=== PATIENT | male | born 1945 | race Caucasian/White ===

== ENCOUNTER 2016-03-22 | Outpatient (CLI) | payer MEDICARE, MEDICAID | END 2016-03-22 17:27 | disposition critical access hospital (66) | DX: R55 Syncope and collapse (principal) | CPT/HCPCS: A0425; A0427 ==

== ENCOUNTER 2016-03-22 17:44 | Emergency (ER) | payer MEDICARE ==
[2016-03-22] MEDS ORDERED: SODIUM CHLORIDE 0.9% 1,000 ML IV ONE (17:50)
== END 2016-03-22 20:40 | disposition left against medical advice (07) ==
DX: R55 Syncope and collapse (principal); I10 Essential (primary) hypertension
CPT/HCPCS: 36415; 71010; 80053; 80307; 83690; 84484; 85025; 93005; 93010; 99284; G0480

== ENCOUNTER 2016-07-14 07:15 | Outpatient (CLI) | payer MEDICARE, MEDICAID | END 2016-07-14 07:16 | disposition EMS.NT | LOC: EMS 07:15 | PROVIDERS: ATTEND Surgery | DX: Z03.89 Encounter for observation for other suspected diseases and conditions ruled out (principal); W01.198A Fall on same level from slipping, tripping and stumbling with subsequent striking against other object, initial encounter; Y92.099 Unspecified place in other non-institutional residence as the place of occurrence of the external cause ==

== ENCOUNTER 2017-06-09 07:15 | Outpatient (CLI) | payer MEDICARE, MEDICAID | END 2017-06-09 07:16 | disposition critical access hospital (66) | LOC: EMS 07:15 | PROVIDERS: ATTEND Surgery | DX: R10.9 Unspecified abdominal pain (principal); R11.10 Vomiting, unspecified; R05 Cough | CPT/HCPCS: A0425; A0427 ==

== ENCOUNTER 2017-06-09 07:35 | Emergency (ER) | payer MEDICARE, MEDICAID ==
--- NOTE | 2017-06-09 08:12 | ED Physician Documentation ---
PD HPI ALTERED MENTAL STATUS - Stated complaint Stated Complaint: DEC LOC - Chief complaint Chief Complaint: Neuro - History obtained from History obtained from: Patient, EMS - History of Present Illness Timing - onset: How many days ago (2) Timing - duration: Days (2) Timing - details: Gradual onset, Still present, Waxing and waning Associated symptoms: NVD, Other (abdominal cramping last night) Contributing factors: Anticoagulated, Other (has developmental delay) Basline status: Ambulatory, Independent Similar symptoms before: No diagnosis Recently seen: Not recently seen - Additional information Additional information: 72-year-old male with a history of developmental delay has developed some abdominal cramping last night and this morning the nurses called to have him transported the hospital for evaluation. The patient states that this morning he is not having any difficulty with his abdominal cramping and his symptoms are resolved. He states that he did have some vomiting 2 nights ago and that is not normal for him but he is not nauseated now. He states that if he were left at home he would do his usual morning routine this morning. Review of Systems Constitutional: denies: Fever Eyes: denies: Decreased vision Ears: denies: Ear pain Nose: denies: Congestion Throat: denies: Sore throat Cardiac: denies: Chest pain / pressure, Palpitations Respiratory: denies: Dyspnea, Cough GI: reports: Abdominal Pain, Nausea, Vomiting. denies: Constipation, Diarrhea : denies: Dysuria, Frequency Skin: denies: Rash Musculoskeletal: denies: Neck pain, Back pain, Extremity pain Neurologic: denies: Generalized weakness, Focal weakness, Headache, Head injury , LOC PD PAST MEDICAL HISTORY - Past Medical History Cardiovascular: Hypertension Neuro: Other HEENT: Other Psych: Anxiety - Present Medications Home Medications: Ambulatory Orders Medication Instructions Recorded Confirmed Acetaminophen [Tylenol] 325 mg PO Q4-6H PRN 04/25/13 04/25/13 Cetirizine HCl [Zyrtec] 10 mg PO 04/25/13 04/25/13 Divalproex ER [Depakote ER] 875 mg PO DAILY 04/25/13 04/25/13 Divalproex Sodium [Depakote] 750 mg PO DAILY 04/25/13 04/25/13 Loperamide [Imodium] 2 mg PO QID 04/25/13 04/25/13 Metoprolol Succinate [Toprol Xl] 25 mg PO ONCE 04/25/13 04/25/13 Temazepam 30 mg PO PRN 04/25/13 04/25/13 - Allergies Allergies/Adverse Reactions: Allergies Allergy/AdvReac Type Severity Reaction Status Date / Time No Known Drug Allergies Allergy Verified 06/09/17 07:56 - Social History Does the pt smoke?: No Smoking Status: Never smoker Does the pt drink ETOH?: No - Immunizations Immunizations are current?: Yes - POLST Patient has POLST: Yes POLST Status: Full Code PD ED PE NORMAL - Vitals Vital signs reviewed: Yes (tachy and hypertensive mild) - General General: No acute distress, Well developed/nourished - HEENT HEENT: Atraumatic, PERRL, EOMI - Neck Neck: Supple, no meningeal sign, No bony TTP - Cardiac Cardiac: No murmur, Other (tachy to 110 sitting up. ) - Respiratory Respiratory: No respiratory distress, Clear bilaterally - Abdomen Abdomen: Soft, Non tender - Male Male : Deferred - Back Back: No CVA TTP, No spinal TTP - Derm Derm: Normal color, Warm and dry, No rash - Extremities Extremities: No deformity, No edema - Neuro Neuro: No motor deficit, No sensory deficit, Normal speech Eye Opening: Spontaneous Motor: Obeys Commands Verbal: Confused GCS Score: 14 - Psych Psych: Normal mood, Normal affect Results - Vitals Vitals: Vital Signs - 24 hr 06/09/17 06/09/17 06/09/17 07:46 09:33 10:40 Temperature 36.7 C Heart Rate 105 H 97 99 Respiratory 17 15 18 Rate Blood Pressure 134/84 H 141/102 H 111/85 H O2 Saturation 92 99 99 06/09/17 06/09/17 11:46 13:26 Temperature 36.3 C L Heart Rate 101 H 78 Respiratory 20 18 Rate Blood Pressure 142/103 H 128/61 O2 Saturation 95 95 Oxygen O2 Source Room air - EKG (time done) 0754 Rate: Rate (enter#) (101) Rhythm: Sinus tachycardia [place]: LAD Intervals: Prolonged QT (522) QRS: Poor R wave progression, Low voltage - Labs Labs: Laboratory Tests 06/09/17 06/09/17 06/09/17 07:50 07:50 07:50 WBC 7.7 RBC 4.38 L Hgb 13.0 L Hct 38.6 L MCV 88.0 MCH 29.6 MCHC 33.6 RDW 15.7 H Plt Count 133 MPV 7.5 Neut # 3.2 Lymph # 3.5 Sully # 0.9 Eos # 0.0 Baso # 0.1 Absolute Nucleated RBC 0.00 Nucleated RBC % 0.0 Sodium 135 Potassium 3.4 L Chloride 97 L Carbon Dioxide 27 Anion Gap 11.0 BUN 27 H Creatinine 1.1 Estimated GFR (MDRD) 66 L Glucose 108 H Calcium 8.8 Total Bilirubin 0.6 AST 51 H ALT 24 Alkaline Phosphatase 44 Troponin I < 0.04 Total Protein 8.1 Albumin 3.8 Globulin 4.3 H Albumin/Globulin Ratio 0.9 L Lipase 20 L Urine Color Urine Clarity Urine pH Ur Specific [place] Urine Protein Urine Glucose (UA) Urine Ketones Urine Occult Blood Urine Nitrite Urine Bilirubin Urine Urobilinogen Ur Leukocyte Esterase Ur Microscopic Review Urine Culture Comments 06/09/17 11:30 WBC RBC Hgb Hct MCV MCH MCHC RDW Plt Count MPV Neut # Lymph # [place]ully # Eos # Baso # Absolute Nucleated RBC Nucleated RBC % Sodium Potassium Chloride Carbon Dioxide Anion Gap BUN Creatinine Estimated GFR (MDRD) Glucose Calcium Total Bilirubin AST ALT Alkaline Phosphatase Troponin I Total Protein Albumin Globulin Albumin/Globulin Ratio Lipase Urine Color YELLOW Urine Clarity CLEAR Urine pH 5.5 Ur Specific [place] 1.025 Urine Protein NEGATIVE Urine Glucose (UA) NEGATIVE Urine Ketones NEGATIVE Urine Occult Blood NEGATIVE Urine Nitrite NEGATIVE Urine Bilirubin NEGATIVE Urine Urobilinogen 0.2 (NORMAL) Ur Leukocyte Esterase NEGATIVE Ur Microscopic Review NOT INDICATED Urine Culture Comments NOT INDICATED Procedures - IVC sono (time) 0820 Bedside IVC sono: IVC measures (cm) (1.28), Dehydration (mild est 1liter deficit ) PD MEDICAL DECISION MAKING - ED course Complexity details: reviewed old records, reviewed results, re-evaluated patient , considered differential, d/w patient ED course: 72 y/o developmentally delayed male with some abdominal cramping yesterday is symptom free today. He is a poor historian and wants to go home. He is examined and checked over closely without specific findings with the exception of the low CVP presumed from dehydration. He is administered IV saline and discharged back to home. Departure - Departure Disposition: 01 Home, Self Care Clinical Impression: Dehydration Condition: Stable Instructions: ED Dehydration Follow-Up: Good,Dottie B, PA-C [Provider Admit Priv/Credential] - Discharge Date/Time: 06/09/17 13:26
[2017-06-09] MEDS ORDERED: SODIUM CHLORIDE 0.9% 1,000 ML IV ONE (08:22)
[2017-06-09 08:28] LABS: BASOPHILS # (AUTO) 0.1 10^3/uL (0.0-0.1); BASOPHILS % (AUTO) 0.7 %; EOSINOPHILS % (AUTO) 0.6 %; LYMPHOCYTES # (AUTO) 3.5 10^3/uL (1.5-3.5); LYMPHOCYTES % (AUTO) 45.5 %; MEAN CORPUSCULAR HEMOGLOBIN 29.6 pg (27.0-31.0); MEAN CORPUSCULAR HGB CONC 33.6 g/dL (32.0-36.0); MEAN PLATELET VOLUME 7.5 fL (7.4-11.4); MONOCYTES # (AUTO) 0.9 10^3/uL (0.0-1.0); MONOCYTES % (AUTO) 11.3 %; NEUTROPHILS # (AUTO) 3.2 10^3/uL (1.5-6.6); NEUTROPHILS % (AUTO) 41.9 %; PLT - PLATELET COUNT 133 10^3/uL (130-450); RED BLOOD COUNT 4.38 10^6/uL (4.70-6.10); RED CELL DISTRIBUTION WIDTH 15.7 % (12.0-15.0); WHITE BLOOD COUNT 7.7 x10^3/uL (4.8-10.8)
[2017-06-09 08:42] LABS: ALBUMIN 3.8 g/dL (3.2-5.5); ALBUMIN/GLOBULIN RATIO 0.9 (1.0-2.2); BILIRUBIN,TOTAL 0.6 mg/dL (0.2-1.0); CALCIUM 8.8 mg/dL (8.5-10.3); CREATININE 1.1 mg/dL (0.6-1.2); TOTAL PROTEIN 8.1 g/dL (6.7-8.2)
[2017-06-09 11:42] LABS: BILIRUBIN,URINE NEGATIVE (NEGATIVE); GLUCOSE, URINE (UA) NEGATIVE (NEGATIVE); KETONES,URINE (UA) NEGATIVE (NEGATIVE); LEUKOCYTE ESTERASE, URINE NEGATIVE (NEGATIVE); NITRITE,URINE NEGATIVE (NEGATIVE); OCCULT BLOOD,URINE NEGATIVE (NEGATIVE); PH,URINE 5.5 PH (5.0-7.5); PROTEIN,URINE NEGATIVE (NEGATIVE); UROBILINOGEN,URINE 0.2 (NORMAL) E.U./dL (NORMAL)
[2017-06-09 11:45] LABS: CLARITY,URINE CLEAR (CLEAR)
[2017-06-09] MEDS ORDERED: POTASSIUM BICARB 25 MEQ TABLET PO STA (12:02)
[2017-06-09 13:27] VITALS: BP 128/61
== END 2017-06-09 13:26 | disposition home or self-care (01) ==
LOC: EDUNIT# → ED 07:35
DX: E86.0 Dehydration (principal)
CPT/HCPCS: 36415; 80053; 81003; 83690; 84484; 85025; 93005; 96360; 99284; 99285; A9270; 81001; 87086

== ENCOUNTER 2018-10-23 08:00 | Outpatient (CLI) | payer MEDICARE, MEDICAID ==
[2018-10-23 16:58] LABS: BASOPHILS # (AUTO) 0.1 10^3/uL (0.0-0.1); BASOPHILS % (AUTO) 0.8 %; EOSINOPHILS # (AUTO) 0.2 10^3/uL (0.0-0.7); EOSINOPHILS % (AUTO) 2.3 %; HGB - HEMOGLOBIN 14.4 g/dL (14.0-18.0); LYMPHOCYTES # (AUTO) 3.5 10^3/uL (1.5-3.5); LYMPHOCYTES % (AUTO) 45.8 %; MEAN CORPUSCULAR HEMOGLOBIN 30.6 pg (27.0-31.0); MEAN CORPUSCULAR VOLUME 92.8 fL (80.0-94.0); MEAN PLATELET VOLUME 9.7 fL (7.4-11.4); MONOCYTES # (AUTO) 0.7 10^3/uL (0.0-1.0); MONOCYTES % (AUTO) 8.6 %; NEUTROPHILS # (AUTO) 3.2 10^3/uL (1.5-6.6); NEUTROPHILS % (AUTO) 42.1 %; PLT - PLATELET COUNT 181 10^3/uL (130-450); RED BLOOD COUNT 4.71 10^6/uL (4.70-6.10); RED CELL DISTRIBUTION WIDTH 14.2 % (12.0-15.0); WHITE BLOOD COUNT 7.7 x10^3/uL (4.8-10.8)
== END 2018-10-23 23:59 | disposition home or self-care (01) ==
LOC: LAB.R 08:00
PROVIDERS: ATTEND Internal Medicine
DX: I10 Essential (primary) hypertension (principal)
CPT/HCPCS: 84550; 85025

== ENCOUNTER 2020-06-01 12:41 | Outpatient (CLI) | payer MEDICARE, MEDICAID ==
--- NOTE | 2020-06-01 14:23 | XRAY Report ---
PROCEDURE: Knee 3 View BILAT INDICATIONS: BILATERAL KNEE PX TECHNIQUE: 3 views of each knee(s) were acquired. COMPARISON: None. FINDINGS: Bones: No acute fractures or dislocations. Healed fracture deformity of the left proximal fibula. No suspicious bony lesions. Mild periarticular osteophyte formation at the bilateral knee joints. Soft tissues: No joint effusion. No suspicious soft tissue calcifications. IMPRESSION: 1. Osteoarthritis. 2. No acute fracture. No osseous lesion. If symptoms and/or clinical suspicion for pathology continue , further assessment with repeat plain films, or advanced imaging (e.g., CT, MRI, or bone scan) is re commended for further assessment. Reviewed by: Linh Boo MD on 06/01/2020 2:21 PM PDT Approved by: Linh Boo MD on 06/01/2020 2:21 PM PDT Station ID: [id number]
== END 2020-06-01 12:42 | disposition home or self-care (01) ==
LOC: DI.N 12:41
PROVIDERS: ATTEND Student in an Organized Health Care Education/Training Program
DX: M17.0 Bilateral primary osteoarthritis of knee (principal)

== ENCOUNTER 2021-03-17 13:10 | Outpatient (CLI) | payer MEDICARE, MEDICAID | END 2021-03-17 13:11 | disposition short-term general hospital (02) | LOC: EMS 13:10 | DX: R55 Syncope and collapse (principal); I48.91 Unspecified atrial fibrillation | CPT/HCPCS: A0425; A0427 ==

== ENCOUNTER 2021-05-21 07:02 | Outpatient (CLI) | payer MEDICARE, MEDICAID | END 2021-05-21 07:03 | disposition critical access hospital (66) | LOC: EMS 07:02 | DX: R04.0 Epistaxis (principal); R32 Unspecified urinary incontinence; W19.XXXA Unspecified fall, initial encounter; Y92.092 Bedroom in other non-institutional residence as the place of occurrence of the external cause | CPT/HCPCS: A0425; A0429 ==

== ENCOUNTER 2021-05-21 07:20 | Emergency (ER) | payer MEDICARE, MEDICAID ==
[2021-05-21] MEDS ORDERED: SODIUM CHLORIDE 0.9% 1,000 ML IV STA (07:30)
[2021-05-21] MEDS ORDERED: diltiaZEM INJ 5 MG/ML VIAL IVP STA (07:30)
--- NOTE | 2021-05-21 07:34 | ED Physician Documentation ---
PD HPI Fall - Stated complaint Stated Complaint: FALL/FOUND DOWN - History obtained from History obtained from: Patient, EMS, Caregiver (Here is a resident at [facility] and was found down on the floor without apparent injury. He was awake and alert, with no memory of the fall c/w his dementia.) - History of Present Illness Mechanism of injury: Unknown (Report from EMS with the information provided by the caregivers at the facility state the patient had been seen normal and helped up about an hour prior and then was found on the floor shortly prior to arrival. No obvious apparent injuries. EMS was called and they brought him here for evaluation.) Fall distance: Standing position Where injury occurred: Home Timing - onset: How many minutes ago (30), Today Injury(ies) location: Other (No particular complaints of pain or injury. Awake and conversant.). No: Head, Face, Neck, Chest, Abdomen Pain level max: 0 Pain level now: 0 Associated symptoms: No: LOC, Neck pain, Weakness Worsens with: No: Movement, Palpation Contributing factors: Anticoagulated. No: Intoxicated Similar symptoms before: Has not had sx before Recently seen: Not recently seen Review of Systems Unable to obtain: Dementia (poor short term memory. Through Medic, caregivers did not report recent illness, nor any unusual interaction earlier in the morning.) Constitutional: denies: Fever Cardiac: denies: Chest pain / pressure Respiratory: denies: Dyspnea GI: denies: Abdominal Pain Skin: denies: Abrasion (s), Laceration (s) Neurologic: denies: Focal weakness PD PAST MEDICAL HISTORY - Past Medical History Cardiovascular: Hypertension, Atrial fibrillation (He is on diltiazem and a DOAC with presumed history of A. fib.) Neuro: Dementia, Other (Reportedly some developmental delay but the staff at [facility] were not aware what. Prior visits here just speak of a developmental delay.) Endocrine/Autoimmune: None : Benign prostate hypertrophy HEENT: Other Psych: Anxiety Musculoskeletal: Osteoarthritis - Present Medications Home Medications: Ambulatory Orders Medication Instructions Recorded Confirmed Acetaminophen [Tylenol] 325 mg PO Q4-6H PRN 04/25/13 05/21/21 Cetirizine HCl [Zyrtec] 10 mg PO DAILY 04/25/13 05/21/21 Apixaban [Eliquis] 5 mg PO DAILY 05/21/21 05/21/[address] [Depakote Dr] 375 mg PO BID 05/21/21 05/21/21 LORazepam [Ativan] 1 mg PO Q6HR PRN 05/21/21 05/21/21 Loperamide [Imodium] 2 mg PO QID PRN 05/21/21 05/21/21 QUEtiapine [SEROquel] 100 mg PO DAILY 05/21/21 05/21/21 Quetiapine Fumarate [Seroquel] 150 mg PO BID 05/21/21 05/21/21 Tamsulosin [Flomax] 0.4 mg PO DAILY 05/21/21 05/21/21 allopurinoL [Zyloprim] 100 mg PO DAILY 05/21/21 05/21/21 diltiaZEM [Cardizem] 30 mg PO Q6HR 05/21/21 05/21/21 guaiFENesin [Chest Congestion 5 ml PO Q8HR PRN 05/21/21 05/21/21 Relief] traZODone [Desyrel] 50 mg PO HS 05/21/21 05/21/21 - Allergies Allergies/Adverse Reactions: Allergies Allergy/AdvReac Type Severity Reaction Status Date / Time No Known Drug Allergies Allergy Verified 05/21/21 07:30 - Social History Does the pt smoke?: No Smoking Status: Never smoker Does the pt drink ETOH?: No - Immunizations Immunizations are current?: Yes - POLST Patient has POLST: Yes POLST Status: Full Code PD ED PE NORMAL - Vitals Vital signs reviewed: Yes - General General: Alert and oriented X 3, No acute distress (poor memory of events earlier today or recent past c/w dementia. Otherwise alert and answers questions in the moment well. ), Well developed/nourished - HEENT HEENT: Atraumatic, Pharynx benign, Other (somewhat unkempt khoury and hair. Otherwise appears well nourished. ) - Neck Neck: Supple, no meningeal sign, No adenopathy - Cardiac Cardiac: RRR, No murmur - Respiratory Respiratory: No respiratory distress, Clear bilaterally, Other (no chestwall tenderness) - Abdomen Abdomen: Soft, Non tender - Back Back: No CVA TTP, No spinal TTP - Derm Derm: Normal color, Warm and dry - Extremities Extremities: No deformity, No tenderness to palpate, No edema, No calf tenderness / cord - Neuro Neuro: No motor deficit, No sensory deficit. No: Alert and oriented X 3 (person and place but not time nor recent events. ) Eye Opening: Spontaneous Motor: Obeys Commands Verbal: Confused GCS Score: 14 Results - Vitals Vitals: Vital Signs - 24 hr 05/21/21 05/21/21 05/21/21 07:25 07:37 08:07 Temperature 37.1 C Heart Rate 137 H 134 H 108 H Respiratory 22 19 20 Rate Blood Pressure 150/109 H 139/112 H 158/99 H O2 Saturation 93 92 94 05/21/21 05/21/21 05/21/21 08:30 09:00 09:30 Temperature Heart Rate 110 H 114 H 128 H Respiratory 20 18 17 Rate Blood Pressure 184/111 H 177/98 H 188/107 H O2 Saturation 98 99 99 05/21/21 05/21/21 05/21/21 10:00 10:30 11:00 Temperature 36.7 C Heart Rate 117 H 104 H 113 H Respiratory 18 20 18 Rate Blood Pressure 163/74 H 188/83 H 188/106 H O2 Saturation 96 93 98 05/21/21 05/21/21 05/21/21 11:30 12:00 12:30 Temperature 36.6 C Heart Rate 114 H 95 98 Respiratory 17 22 18 Rate Blood Pressure 179/97 H 179/97 H 167/98 H O2 Saturation 97 97 98 Oxygen O2 Source Room air - EKG (time done) 07:42 Rate: Rate (enter#) (130) Rhythm: Sinus tachycardia, Other (Significant baseline artifact but appears some P waves are visible. Consistent with sinus tachycardia with some PACs.) Intervals: Normal [place] Ischemia: Normal ST segments. No: ST elevation c/w ischemia, ST depression - Labs Labs: Laboratory Tests 05/21/21 05/21/21 05/21/21 07:51 07:51 07:51 WBC 9.7 RBC 4.94 Hgb 14.6 Hct 44.5 MCV 90.1 MCH 29.6 MCHC 32.8 RDW 14.9 Plt Count 212 MPV 9.3 Neut # (Auto) 8.2 H Lymph # (Auto) 0.6 L Lee # (Auto) 0.7 Eos # (Auto) 0.0 Baso # (Auto) 0.0 Absolute Nucleated RBC 0.00 Nucleated RBC % 0.0 Sodium 133 L Potassium 4.1 Chloride 93 L Carbon Dioxide 26 Anion Gap 14.0 H BUN 19 Creatinine 1.0 Estimated GFR (MDRD) 73 L Glucose 160 H Calcium 9.6 Magnesium 1.9 Total Bilirubin 0.7 AST 42 ALT 21 Alkaline Phosphatase 60 B-Natriuretic Peptide 62 Total Protein 9.2 H Albumin 3.8 Globulin 5.4 H Albumin/Globulin Ratio 0.7 L Lipase 38 Last Dose Date UNK Last Dose Time UNK Valproic Acid 37.3 - Rads (name of study) chest xray Radiology: Prelim report reviewed (Mild blunting of the left costophrenic angle. Otherwise no acute process.), See rad report Head CT Radiology: Prelim report reviewed (No intracranial hemorrhage or acute process.), See rad report PD MEDICAL DECISION MAKING - ED course Complexity details: reviewed results, re-evaluated patient (The patient is still feeling well here without any specific pains or apparent injuries from the fall. Basic blood testing is normal. Chest x-ray and head CT are without any acute findings. At this point he seems stable for discharge and can be returned back to the correction facility from ), considered differential (No report of recent illness. Found down on the floor after normal interaction an hour prior. Is on blood thinner but no headache. Will check metabolic labs as well to screen for infection and get a head CT due to blood thinner.), d/w patient (History of dementia and poor short-term memory so not as much information from the patient.) Departure - Departure Disposition: 01 Home, Self Care Clinical Impression: Anticoagulant long-term use Fall Qualifiers: Encounter type: initial encounter Qualified Code(s): W19.XXXA - Unspecified fall, initial encounter Condition: Stable Record reviewed to determine appropriate education?: Yes Comments: Continue with your usual medications and treatments. Follow-up as needed with your primary care. No obvious metabolic problems nor injuries noted on exam today. Discharge Date/Time: 05/21/21 13:25
[2021-05-21 08:10] LABS: BASOPHILS % (AUTO) 0.4 %; HCT - HEMATOCRIT 44.5 % (42.0-52.0); HGB - HEMOGLOBIN 14.6 g/dL (14.0-18.0); LYMPHOCYTES # (AUTO) 0.6 10^3/uL (1.5-3.5); LYMPHOCYTES % (AUTO) 6.5 %; MEAN CORPUSCULAR HEMOGLOBIN 29.6 pg (27.0-31.0); MEAN CORPUSCULAR HGB CONC 32.8 g/dL (32.0-36.0); MEAN CORPUSCULAR VOLUME 90.1 fL (80.0-94.0); MEAN PLATELET VOLUME 9.3 fL (7.4-11.4); MONOCYTES # (AUTO) 0.7 10^3/uL (0.0-1.0); MONOCYTES % (AUTO) 7.1 %; NEUTROPHILS # (AUTO) 8.2 10^3/uL (1.5-6.6); NEUTROPHILS % (AUTO) 85.2 %; PLT - PLATELET COUNT 212 10^3/uL (130-450); RED BLOOD COUNT 4.94 10^6/uL (4.70-6.10); RED CELL DISTRIBUTION WIDTH 14.9 % (12.0-15.0); WHITE BLOOD COUNT 9.7 x10^3/uL (4.8-10.8)
--- OUTSIDE RECORDS SUMMARY | 2021-05-21 08:11 | EXTERNAL MEDICAL SUMMARY RPT | Continuity of Care Document ---
:1945 Author Organization [facility] Address [address] [place] [address] Phone Care Team Providers Name Role Phone Crystal Unavailable Unavailable Allergies No information. Encounters No information. Medications No information. Problems date description facility [id number] Unspecified atrial fibrillation [facility] [id number] Pneumonia, unspecified organism [facility] Procedures date description facility [id number] [facility] [id number] [facility] [id number] Diagnosis [facility] Results No information. Vital Signs date measurement value source 20210405 weight_standard 96.73 lb 20210405 weight_metric 43.88 kg 20210405 height_standard 69 in 20210405 height_metric 175.26 cm 20210405 heart_rate 83 /min 20210405 BP_systolic 120 mm[Hg] 20210405 BP_diastolic 76 mm[Hg] 20210405 BMI 31.4 kg/m2
--- NOTE | 2021-05-21 08:18 | XRAY Report ---
PROCEDURE: Chest 1 View X-Ray INDICATIONS: chest pain TECHNIQUE: One view of the chest was acquired. COMPARISON: 03/22/2016, 04/25/2013 FINDINGS: Surgical changes and devices: None. Lungs and pleura: On the semiupright images, no large pneumothorax can be seen. No focal infiltrates are seen. Minimal blunting of the left costophrenic angle can be seen. Mediastinum: Mediastinal contours appear normal. Heart size is normal. Calcification is seen of th e aortic arch. Bones and chest wall: No suspicious bony lesions. Age-appropriate degenerative changes are seen. O verlying soft tissues appear unremarkable. IMPRESSION: There is minimal blunting of the left costophrenic angle. Please consider atelectasis versus a small pleural effusion. Reviewed by: Jef العراقي MD on 05/21/2021 7:17 AM ROSENDA Approved by: Jef العراقي MD on 05/21/2021 7:17 AM ROSENDA Station ID: [id number]
[2021-05-21 08:25] LABS: ALBUMIN 3.8 g/dL (3.2-5.5); ALBUMIN/GLOBULIN RATIO 0.7 (1.0-2.2); ALKALINE PHOSPHATASE 60 IU/L (42-121); ALT ALANINE AMINOTRANSFERASE 21 IU/L (10-60); AST ASPARTATE AMINOTRANSFERASE 42 IU/L (10-42); BILIRUBIN,TOTAL 0.7 mg/dL (0.2-1.0); BUN - BLOOD UREA NITROGEN 19 mg/dL (6-20); CALCIUM 9.6 mg/dL (8.5-10.3); CARBON DIOXIDE - CO2 26 mmol/L (21-32); CHLORIDE 93 mmol/L (101-111); GFR - MDRD 73 (>89); GLUCOSE 160 mg/dL (70-100); LIPASE 38 U/L (22-51); MAGNESIUM 1.9 mg/dL (1.7-2.8); POTASSIUM 4.1 mmol/L (3.5-5.0); SODIUM 133 mmol/L (135-145); TOTAL PROTEIN 9.2 g/dL (6.7-8.2); VALPROIC ACID (DEPAKOTE) 37.3 ug/mL
--- NOTE | 2021-05-21 08:46 | CT Report ---
PROCEDURE: HEAD WO INDICATIONS: fall, on DOAC TECHNIQUE: Noncontrast 4.5 mm thick angled axial sections acquired from the foramen magnum to the vertex. For r adiation dose reduction, the following was used: automated exposure control, adjustment of mA and/or kV according to patient size. COMPARISON: None. FINDINGS: Image quality: Motion artifact is noted. Images were repeated, with some improvement. CSF spaces: Basal cisterns are patent. No extra-axial fluid collections. Ventricles are normal in size and shape. Brain: No midline shift. No intracranial masses or hemorrhage. [place]-white matter interface is norm al. Skull and face: Calvarium and visualized facial bones are intact, without suspicious lesions. Sinuses: Moderate mucosal thickening is seen within the maxillary sinuses. Mild mucosal thickening is seen within the ethmoid air cells. No significant abnormal fluid can be seen within the mastoid air cells. IMPRESSION: No acute intracranial hemorrhage is seen. Age-appropriate brain parenchymal volume loss and chronic small vessel ischemic change can be seen. Paranasal sinus disease is noted, which is worst within the maxillary sinuses. Reviewed by: Jef العراقي MD on 05/21/2021 7:44 AM ROSENDA Approved by: Jef العراقي MD on 05/21/2021 7:44 AM ROSENDA Station ID: [id number]
[2021-05-21 13:05] VITALS: BP 167/98
== END 2021-05-21 13:25 | disposition home or self-care (01) ==
LOC: EDUNIT# → ED 07:20
DX: Z04.3 Encounter for examination and observation following other accident (principal); I48.91 Unspecified atrial fibrillation; I10 Essential (primary) hypertension; Z79.01 Long term (current) use of anticoagulants
CPT/HCPCS: 36415; 80053; 80164; 83690; 83735; 83880; 85025; 93005; 96374; 99283

== ENCOUNTER 2021-05-21 13:31 | Outpatient (CLI) | payer MEDICARE, MEDICAID | END 2021-05-21 13:32 | disposition home or self-care (01) | LOC: EMS 13:31 | PROVIDERS: ATTEND Emergency Medicine | DX: R41.0 Disorientation, unspecified (principal); R53.1 Weakness | CPT/HCPCS: A0425; A0428 ==

== ENCOUNTER 2024-02-09 12:15 | Inpatient (IN) ==
[2024-02-09] MEDS: IPRATROPIUM/ALBUTEROL 3 ML NEB INH STA (12:53)
--- NOTE | 2024-02-09 13:03 | ED Physician Documentation ---
History of Present Illness Stated complaint Stated Complaint: SOA Chief complaint Chief Complaint: Resp History obtained from History obtained from: Patient and EMS Additonal information Additional information: Patient is a 78-year-old male, unable to give any history, unclear exactly what has been happening over the past few days. EMS states that they were told that he has had difficulty breathing over the past few days. Patient cannot answer if he has had any fevers. Apparently lives at [facility]. He does not know if he has any lung history or not. EMS reports 88% on room air. Review of Systems Status of ROS: unobtainable due to medical condition and unobtainable due to mental status Meds/Allgy Home Medications Ambulatory Orders Medication Instructions Recorded Confirmed allopurinol 100 mg tablet 100 mg PO DAILY 05/21/21 02/09/24 apixaban 5 mg tablet (Eliquis) 5 mg PO BID 05/21/21 02/09/24 divalproex 125 mg tablet,delayed 375 mg PO BID 05/21/21 02/09/24 release lorazepam 1 mg tablet 1 mg PO Q6HR PRN Anxiety 05/21/21 02/09/24 quetiapine 100 mg tablet 100 mg PO DAILY 05/21/21 02/09/24 quetiapine 50 mg tablet (Seroquel) 150 mg PO BID 05/21/21 02/09/24 tamsulosin 0.4 mg capsule 0.8 mg PO QPM 05/21/21 02/09/24 trazodone 50 mg tablet 50 mg PO HS 05/21/21 02/09/24 acetaminophen 325 mg tablet 650 mg PO Q4H 02/09/24 02/09/24 loratadine 10 mg tablet (Claritin) 10 mg PO DAILY 02/09/24 02/09/24 metoprolol tartrate 50 mg tablet 50 mg PO BID 02/09/24 02/09/24 Allergies Allergies Allergy/AdvReac Type Severity Reaction Status Date / Time No Known Drug Allergies Allergy Verified 05/21/21 07:30 [facility]LY [facility] Medical History Medical History (Updated 02/10/24 @ 10:34 by Baldemar Dawkins DNP) BPH (benign prostatic hyperplasia) Dementia Hypertension Atrial fibrillation Social History Social History Smoking Status: Never smoker Level: Assisted Home Mobility Equipment: Walker Do you feel safe in your home environment?: Yes Suffered physical, verbal, emotional, or financial abuse?: No POLST Patient has POLST: Yes POLST Status: Full Code Exam Constitutional Ill-appearing, unable to give any history, HENMT normocephalic and head/scalp atraumatic Eyes PERRL Respiratory Crackles bilaterally, diminished breath sounds. Cardiovascular normal heart rate noted and regular rhythm noted Gastrointestinal abdomen soft to palpation and nontender to palpation Genitourinary no CVA tenderness Back/Pelvis no thoracic spine tenderness and no lumbar spine tenderness Extremities no edema Psychiatry decreased LOC Skin no rash Results Vitals Vitals: Vital Signs - 24 hr 02/09/24 20:52 02/10/24 01:10 02/10/24 01:11 Temperature 36.6 C 36.7 C 36.7 C Temperature Source Temporal Artery Scan Temporal Artery Scan Temporal Artery Scan Pulse Rate Pulse Rate [Brachial] 77 156 H 142 H Respiratory Rate 19 26 H 24 Blood Pressure Blood Pressure [Left Brachial artery] 148/60 H 144/90 H 144/90 H O2 Saturation 96 93 O2 Source Nasal cannula Nasal cannula Nasal cannula If not protocol: Oxygen Flow, liters/minute 4 4 Sedation scale 0-Fully awake 0-Fully awake 0-Fully awake Pain Intensity 0 0 0 02/10/24 02:57 02/10/24 03:05 02/10/24 03:10 Temperature Temperature Source Pulse Rate 129 H Pulse Rate [Brachial] 121 H 135 H Respiratory Rate Blood Pressure 115/76 Blood Pressure [Left Brachial artery] 134/79 H 126/75 O2 Saturation O2 Source If not protocol: Oxygen Flow, liters/minute Sedation scale 0-Fully awake 0-Fully awake Pain Intensity 02/10/24 03:15 02/10/24 03:46 02/10/24 03:48 Temperature Temperature Source Pulse Rate 144 H 132 H Pulse Rate [Brachial] 116 H Respiratory Rate Blood Pressure 134/89 H 134/89 H Blood Pressure [Left Brachial artery] 140/84 H O2 Saturation O2 Source If not protocol: Oxygen Flow, liters/minute Sedation scale 0-Fully awake Pain Intensity 02/10/24 04:01 02/10/24 04:36 02/10/24 04:37 Temperature 36.5 C Temperature Source Temporal Artery Scan Pulse Rate 139 H 137 H Pulse Rate [Brachial] 122 H Respiratory Rate 22 Blood Pressure 141/88 H 141/88 H Blood Pressure [Left Brachial artery] 123/81 O2 Saturation 95 O2 Source Nasal cannula If not protocol: Oxygen Flow, liters/minute 5 Sedation scale 1-Arouses easily Pain Intensity 02/10/24 05:58 02/10/24 09:00 02/10/24 09:01 Temperature 36.6 C Temperature Source Temporal Artery Scan Pulse Rate 130 H 129 H Pulse Rate [Brachial] 133 H Respiratory Rate 22 Blood Pressure 130/71 149/86 H Blood Pressure [Left Brachial artery] 149/86 H O2 Saturation 94 O2 Source Nasal cannula If not protocol: Oxygen Flow, liters/minute 4 Sedation scale 0-Fully awake Pain Intensity 0 02/10/24 10:14 Temperature Temperature Source Pulse Rate Pulse Rate [Brachial] Respiratory Rate Blood Pressure Blood Pressure [Left Brachial artery] O2 Saturation O2 Source If not protocol: Oxygen Flow, liters/minute 4 Sedation scale Pain Intensity Oxygen O2 Source Nasal cannula EKG (time done) 1318: EKG releavant findings:: EKG personally interpreted by author of this note. Relevant findings are: Rate: Other (135 bpm. Sinus tachycardia. Left anterior fascicular block. Q waves in V1 and V2. Mild rate related ST depression.) Labs Labs: Laboratory Tests 02/09/24 02/09/24 02/09/24 12:50 13:18 17:31 WBC 11.5 H RBC 4.56 L Hgb 13.4 L Hct 42.9 MCV 94.1 H MCH 29.4 MCHC 31.2 L RDW 14.4 Plt Count 128 L MPV 8.9 Neut # (Auto) 7.3 H Lymph # (Auto) 3.1 [place] # (Auto) 1.0 Eos # (Auto) 0.0 Baso # (Auto) 0.0 Absolute Nucleated RBC 0.00 Nucleated RBC % 0.0 Sodium 129 L 130 L Potassium 4.5 Chloride 91 L Carbon Dioxide 31 Anion Gap 7.0 BUN 15 Creatinine 0.8 Estimated GFR (MDRD) 93 Glucose 118 H Calcium 8.8 Magnesium Total Bilirubin 0.5 AST 26 ALT 12 Alkaline Phosphatase 42 Total Protein 7.3 Albumin 3.6 Globulin 3.7 Albumin/Globulin Ratio 1.0 Procalcitonin Immunoas 0.09 Nasal Adenovirus (PCR) NOT DETECTED Nasal B. parapertussis DNA (PCR) NOT DETECTED Nasal Coronavir 229E PCR NOT DETECTED Nasal Coronavir HKU1 PCR NOT DETECTED Nasal Coronavir NL63 PCR NOT DETECTED Nasal Coronavir OC43 PCR NOT DETECTED Nasal Enterovir/Rhinovir PCR NOT DETECTED Nasal Influenza B PCR NOT DETECTED Nasal Influenza A PCR NOT DETECTED Nasal Parainfluen 1 PCR NOT DETECTED Nasal Parainfluen 2 PCR NOT DETECTED Nasal Parainfluen 3 PCR NOT DETECTED Nasal Parainfluen 4 PCR NOT DETECTED Nasal RSV (PCR) DETECTED A Nasal B.pertussis DNA PCR NOT DETECTED Nasal C.pneumoniae (PCR) NOT DETECTED Damaso Human Metapneumo PCR NOT DETECTED Nasal M.pneumoniae (PCR) NOT DETECTED Nasal SARS-CoV-2 (PCR) NOT DETECTED 02/10/24 05:37 WBC 11.4 H RBC 4.12 L Hgb 12.3 L Hct 38.2 L MCV 92.7 MCH 29.9 MCHC 32.2 RDW 14.4 Plt Count 131 MPV 9.2 Neut # (Auto) 6.8 H Lymph # (Auto) 3.8 H [place] # (Auto) 0.8 Eos # (Auto) 0.0 Baso # (Auto) 0.0 Absolute Nucleated RBC 0.00 Nucleated RBC % 0.0 Sodium 128 L Potassium 4.0 Chloride 93 L Carbon Dioxide 29 Anion Gap 6.0 BUN 10 Creatinine 0.7 Estimated GFR (MDRD) 109 Glucose 110 H Calcium 8.0 L Magnesium 1.9 Total Bilirubin AST ALT Alkaline Phosphatase Total Protein Albumin Globulin Albumin/Globulin Ratio Procalcitonin Immunoas Nasal Adenovirus (PCR) Nasal B. parapertussis DNA (PCR) Nasal Coronavir 229E PCR Nasal Coronavir HKU1 PCR Nasal Coronavir NL63 PCR Nasal Coronavir OC43 PCR Nasal Enterovir/Rhinovir PCR Nasal Influenza B PCR Nasal Influenza A PCR Nasal Parainfluen 1 PCR Nasal Parainfluen 2 PCR Nasal Parainfluen 3 PCR Nasal Parainfluen 4 PCR Nasal RSV (PCR) Nasal B.pertussis DNA PCR Nasal C.pneumoniae (PCR) Damaso Human Metapneumo PCR Nasal M.pneumoniae (PCR) Nasal SARS-CoV-2 (PCR) Rads (name of study) cxr: Relevant Findings:: Final report received PD Medical Decision Making ED course ED course: Paroxysmal nocturnal hemoglobinuria patient is a 78-year-old male who lives at [facility]. Sent here for any increased work of breathing as well as hypoxia and decreased mental status. Patient is unable to give any significant history. Appears to have pneumonia, started on Rocephin and azithromycin. Given nebulizer treatments. Maintained on supplemental oxygen. Discussed the case with the hospitalist, will admit for further care. This document was made in part using voice recognition software. While efforts are made to proofread this document, sound alike and grammatical errors may occur. Discharge Plan Discharge Patient Disposition: [facility] DC/Xfer Condition: Stable Clinical Impression: Hypoxia Pneumonia Qualifiers: Pneumonia type: due to unspecified organism Laterality: left Lung location: lower lobe of lung Qualified Code(s): J18.9 - Pneumonia, unspecified organism Interventions: ED Admission Assessment Last Done: 02/09/24 14:47
[2024-02-09 13:25] LABS: BASOPHILS % (AUTO) 0.3 %; HCT - HEMATOCRIT 42.9 % (42.0-52.0); HGB - HEMOGLOBIN 13.4 g/dL (14.0-18.0); LYMPHOCYTES # (AUTO) 3.1 10^3/uL (1.5-3.5); LYMPHOCYTES % (AUTO) 26.9 %; MEAN CORPUSCULAR HEMOGLOBIN 29.4 pg (27.0-31.0); MEAN CORPUSCULAR HGB CONC 31.2 g/dL (32.0-36.0); MEAN CORPUSCULAR VOLUME 94.1 fL (80.0-94.0); MEAN PLATELET VOLUME 8.9 fL (7.4-11.4); MONOCYTES % (AUTO) 8.8 %; NEUTROPHILS # (AUTO) 7.3 10^3/uL (1.5-6.6); NEUTROPHILS % (AUTO) 63.6 %; PLT - PLATELET COUNT 128 10^3/uL (130-450); RED BLOOD COUNT 4.56 10^6/uL (4.70-6.10); RED CELL DISTRIBUTION WIDTH 14.4 % (12.0-15.0); WHITE BLOOD COUNT 11.5 x10^3/uL (4.8-10.8)
--- NOTE | 2024-02-09 13:31 | XRAY Report ---
PROCEDURE: XR Chest 1V INDICATIONS: cough TECHNIQUE: One view of the chest was acquired. COMPARISON: 05/21/2021 FINDINGS: Surgical changes and devices: None. Lungs and pleura: Small left effusion and mild left lung base opacity. Low lung volumes. Mediastinum: Cardiac mediastinal contours are unchanged. Bones and chest wall: Degenerative changes. IMPRESSION: Mild left lung base opacity and effusion, possibly infectious. Consider future imaging surveillance to assess for resolution. Reviewed by: Rashaun Hayes MD on 02/09/2024 12:29 PM [facility] Approved by: Rashaun Hayes MD on 02/09/2024 12:29 PM [facility] Station ID: [id number]
[2024-02-09 13:37] LABS: ALBUMIN 3.6 g/dL (3.2-5.5); BILIRUBIN,TOTAL 0.5 mg/dL (0.2-1.0); CALCIUM 8.8 mg/dL (8.5-10.3); CREATININE 0.8 mg/dL (0.6-1.3); POTASSIUM 4.5 mmol/L (3.5-4.5); TOTAL PROTEIN 7.3 g/dL (6.4-8.9)
[2024-02-09] MEDS: cefTRIAXone 1 GM VIAL IVP STA (13:45)
[2024-02-09] MEDS: AZITHROMYCIN INJ 500 MG in SODIUM CHLORIDE 0.9% 250 ML IV STA (13:45)
[2024-02-09] MEDS: SODIUM CHLORIDE 0.9% 1,000 ML IV STA (13:46)
[2024-02-09 13:55] LABS: B. PARAPERTUSSIS- RESP PCR PAN NOT DETECTED; B. PERTUSSIS- RESP PCR PANEL NOT DETECTED; C. PNEUMONIAE- RESP PCR PANEL NOT DETECTED; CORONAVIRUS 229E-RESP PCR NOT DETECTED; CORONAVIRUS HKU1-RESP PCR NOT DETECTED; CORONAVIRUS NL63-RESP PCR NOT DETECTED; CORONAVIRUS OC43-RESP PCR NOT DETECTED; HUMAN METAPNEUMOVIRUS NOT DETECTED; INFLUENZA A- RESP PCR PANEL NOT DETECTED; INFLUENZA B - RESP PCR PANEL NOT DETECTED; M. PNEUMONIAE- RESP PCR PANEL NOT DETECTED; PARAINFLUENZA VIRUS 1 NOT DETECTED; PARAINFLUENZA VIRUS 2 NOT DETECTED; PARAINFLUENZA VIRUS 4 NOT DETECTED; RHINOVIRUS/ENTEROVIRUS NOT DETECTED; RSV- RESP PCR PANEL DETECTED; SARS-CoV-2 -RESP PCR PANEL NOT DETECTED
[2024-02-09] MEDS: ACETAMINOPHEN 500 MG TABLET PO STA (14:22)
--- NOTE | 2024-02-09 14:42 | HISTORY & PHYSICAL EXAMINATION ---
Chief Complaint Chief Complaint Chief Complaint: Dyspnea History of Present Illness History Obtained From Exam Limitations: Severely demented History of Present Illness HPI Comment/Other: 78-year-old male [facility] significant for dementia, depression, hypertension, BPH, atrial fibrillation who is a facility resident was sent to the ER for difficulty breathing. In the ER, he was noted to have a fever of 30 8.7C, chest x-ray was performed which showed a left lower lobe pneumonia. He was hypoxic to the 80s on room air, was placed on 2 L O2. Hospitalist was contacted for admission for Acute hypoxic respiratory failure Meds/Allgy Home Medications Ambulatory Orders Medication Instructions Recorded Confirmed allopurinol 100 mg tablet 100 mg PO DAILY 05/21/21 02/09/24 apixaban 5 mg tablet (Eliquis) 5 mg PO BID 05/21/21 02/09/24 divalproex 125 mg tablet,delayed 375 mg PO BID 05/21/21 02/09/24 release lorazepam 1 mg tablet 1 mg PO Q6HR PRN Anxiety 05/21/21 02/09/24 quetiapine 100 mg tablet 100 mg PO DAILY 05/21/21 02/09/24 quetiapine 50 mg tablet (Seroquel) 150 mg PO BID 05/21/21 02/09/24 tamsulosin 0.4 mg capsule 0.8 mg PO QPM 05/21/21 02/09/24 trazodone 50 mg tablet 50 mg PO HS 05/21/21 02/09/24 acetaminophen 325 mg tablet 650 mg PO Q4H 02/09/24 02/09/24 loratadine 10 mg tablet (Claritin) 10 mg PO DAILY 02/09/24 02/09/24 metoprolol tartrate 50 mg tablet 50 mg PO BID 02/09/24 02/09/24 Allergies Allergies Allergy/AdvReac Type Severity Reaction Status Date / Time No Known Drug Allergies Allergy Verified 05/21/21 07:30 [facility] Medical History Medical History (Updated 02/09/24 @ 14:36 by Baldemar Dawkins DNP) BPH (benign prostatic hyperplasia) Dementia Hypertension Atrial fibrillation Social History Social History Smoking Status: Never smoker Do you feel safe in your home environment?: Yes Suffered physical, verbal, emotional, or financial abuse?: No POLST Patient has POLST: Yes POLST Status: Full Code Review of Systems Status of ROS: unobtainable due to medical condition Conclusion/Plan Problem List (1) Acute hypoxic respiratory failure: Plan: O2 As needed Manage pneumonia as below (2) Community acquired pneumonia of left lower lobe of lung: Plan: Received Rocephin, azithromycin in the ER Continue for a total of 5 days Rocephin, 3 days azithromycin I-S as much as possible, however patient is severely demented (3) Atrial fibrillation: Plan: Sinus tachycardia on today's EKG. Suspect this is driven by fevers Continue home dose Metoprolol, Eliquis after pharmacy review Telemetry (4) Hypertension: Plan: Home dose metoprolol (5) Dementia: Plan: Sleep hygiene as much as possible Restart home regimen Seroquel after pharmacy verification (6) BPH (benign prostatic hyperplasia): Plan: Restart Flomax Plan Placed in observation According to ED documentation, there is a POLST that shows full code. Will maintain full code for now until I can talk to his brother Lab Results Lab results reviewed: Yes 02/09/24 13:18 02/09/24 13:18 Diagnostic Imaging Results Diagnostic Imaging Results: positive Final report reviewed Diagnostic Imaging Results Comments: CXR: Left lower lobe pneumonia EKG Results EKG Interpreted Independently: Yes EKG Findings: Sinus tachycardia Core Measures Anticipated LOS I expect patient to be DC'd or transferred within 96 hours.: Yes DVT/VTE - Prophylaxis VTE/DVT Device ordered at admit?: No VTE/DVT Prophylaxis med ordered at admit?: Yes
[2024-02-09] MEDS ORDERED: ONDANSETRON ODT 4 MG TABLET TL PRN (14:51)
[2024-02-09] MEDS ORDERED: ONDANSETRON 4 MG/2 ML VIAL IVP PRN (14:51)
[2024-02-09] MEDS ORDERED: ACETAMINOPHEN 325 MG TABLET PO PRN (14:51)
--- NOTE | 2024-02-09 14:55 | PHARMACY PROGRESS NOTE ---
Best Possible Medication History Admit Date and Time: 02/09/24 [id number] Home Medications Medication Instructions Recorded Confirmed Type allopurinol 100 mg tablet 100 mg PO DAILY 05/21/21 02/09/24 History apixaban 5 mg tablet (Eliquis) 5 mg PO BID 05/21/21 02/09/24 History divalproex 125 mg tablet,delayed 375 mg PO BID 05/21/21 02/09/24 History release lorazepam 1 mg tablet 1 mg PO Q6HR PRN Anxiety 05/21/21 02/09/24 History quetiapine 100 mg tablet 100 mg PO DAILY 05/21/21 02/09/24 History quetiapine 50 mg tablet (Seroquel) 150 mg PO BID 05/21/21 02/09/24 History tamsulosin 0.4 mg capsule 0.8 mg PO QPM 05/21/21 02/09/24 History trazodone 50 mg tablet 50 mg PO HS 05/21/21 02/09/24 History acetaminophen 325 mg tablet 650 mg PO Q4H 02/09/24 02/09/24 History loratadine 10 mg tablet (Claritin) 10 mg PO DAILY 02/09/24 02/09/24 History metoprolol tartrate 50 mg tablet 50 mg PO BID 02/09/24 02/09/24 History Processed by: Pharmacy Medications reviewed in ED?: Yes Medication History completed: Yes Secondary Source(s): Facility MAR as ONLY source [facility] Statement: As the person ultimately responsible for medication therapy, providers are able to order a medication from an existing home medication list in [facility] via the "Reconcile Routine" prior to Confirmation of that medication by network support. Such practice is discouraged except when the physician, in their clinical judgment, deems that a medical need exists for a medication without regard to previous use.
[2024-02-09] MEDS: SODIUM CHLORIDE FLUSH 0.9% 10 ML SYRINGE IVP SCH (17:25)
[2024-02-09] MEDS: APIXABAN 5 MG TABLET PO SCH (21:03)
[2024-02-09] MEDS: DIVALPROEX DR 125 MG TABLET PO SCH (21:03)
[2024-02-09] MEDS: traZODone 50 MG TABLET PO SCH (21:03)
[2024-02-09] MEDS: METOPROLOL TARTRATE 50 MG TABLET PO SCH (21:03)
[2024-02-09] MEDS: QUEtiapine 25 MG TABLET PO SCH (21:04)
[2024-02-09] MEDS: TAMSULOSIN 0.4 MG CAPSULE PO SCH (21:04)
--- NOTE | 2024-02-10 02:43 | PROVIDER PROGRESS NOTE ---
Neon Installer Note Neon Installer Note Neon Installer Note: per nurse "Patient admitted for acute hypoxic resp failure and pneumonia. Patient currently on O24L [place] with oxygen saturation of 93%, 144/90, 142 heart rate., 36.7, resp 26, and positive sepsis score. Patient has been consistently having an elevated heart rate around low 140's since around 0049. Patient has a loose, nonproductive cough. Do you want any prn blood pressure medication to control elevated heart rate . Patient currently on scheduled lopressor 50 mg bid. Patient currently saline lock with no fluids." lopressor prn start LR @ 75/hr tessalon prn
[2024-02-10] MEDS: METOPROLOL 5 MG/5 ML VIAL IVP PRN (02:57)
[2024-02-10] MEDS: LACTATED RINGERS 1,000 ML IV SCH (02:59)
[2024-02-10] MEDS: LACTATED RINGERS 1,000 ML IV ONE (05:58)
[2024-02-10 06:03] LABS: BASOPHILS % (AUTO) 0.3 %; EOSINOPHILS % (AUTO) 0.1 %; HCT - HEMATOCRIT 38.2 % (42.0-52.0); HGB - HEMOGLOBIN 12.3 g/dL (14.0-18.0); LYMPHOCYTES # (AUTO) 3.8 10^3/uL (1.5-3.5); MEAN CORPUSCULAR HEMOGLOBIN 29.9 pg (27.0-31.0); MEAN CORPUSCULAR HGB CONC 32.2 g/dL (32.0-36.0); MEAN CORPUSCULAR VOLUME 92.7 fL (80.0-94.0); MEAN PLATELET VOLUME 9.2 fL (7.4-11.4); MONOCYTES # (AUTO) 0.8 10^3/uL (0.0-1.0); MONOCYTES % (AUTO) 6.8 %; NEUTROPHILS # (AUTO) 6.8 10^3/uL (1.5-6.6); NEUTROPHILS % (AUTO) 59.4 %; PLT - PLATELET COUNT 131 10^3/uL (130-450); RED BLOOD COUNT 4.12 10^6/uL (4.70-6.10); RED CELL DISTRIBUTION WIDTH 14.4 % (12.0-15.0); WHITE BLOOD COUNT 11.4 x10^3/uL (4.8-10.8)
[2024-02-10 06:20] LABS: CREATININE 0.7 mg/dL (0.6-1.3)
[2024-02-10] MEDS: LORATADINE 10 MG TABLET PO SCH (09:00)
[2024-02-10] MEDS ORDERED: QUEtiapine 100 MG TABLET PO SCH (09:00)
[2024-02-10] MEDS: BENZONATATE 100 MG CAPSULE PO PRN (09:00)
[2024-02-10] MEDS: cefTRIAXone 1 GM VIAL IVP SCH (09:00)
[2024-02-10] MEDS: AZITHROMYCIN 250 MG TABLET PO SCH (09:02)
[2024-02-10] MEDS: allopurinoL 100 MG TABLET PO SCH (09:02)
[2024-02-10] MEDS: SODIUM CHLORIDE 0.9% 1,000 ML IV SCH ×2 (09:36→21:49)
--- NOTE | 2024-02-10 10:35 | PROVIDER PROGRESS NOTE ---
Subjective Prog Note Date Prog Note Date: 02/10/24 Subjective Pt reports feeling: No change Current Medications Current Medications Current Medications: Current Medications Generic Name Dose Route Start Last Admin Trade Name Freq PRN Reason Stop Dose Admin Acetaminophen 650 mg 02/09/24 14:51 Acetaminophen 325 Mg Tablet PO Q4HR PRN Pain 1 to 4, or Fever Allopurinol 100 mg 02/10/24 09:00 02/10/24 09:02 Allopurinol 100 Mg Tablet PO 100 mg DAILY DANUTA Administration Apixaban 5 mg 02/09/24 21:00 02/10/24 09:00 Apixaban 5 Mg Tablet PO 5 mg BID DANUTA Administration Azithromycin 500 mg 02/10/24 09:00 02/10/24 09:02 Azithromycin 250 Mg Tablet PO 02/12/24 08:59 500 mg DAILY DANUTA Administration Benzonatate 100 mg 02/10/24 02:43 02/10/24 09:00 Benzonatate 100 Mg Capsule PO 100 mg TID PRN Administration Cough Ceftriaxone Sodium 1 gm 02/10/24 09:00 02/10/24 09:00 Ceftriaxone 1 Gm Vial IVP 02/14/24 08:59 1 gm DAILY DANUTA Administration Divalproex Sodium 375 mg 02/09/24 21:00 02/10/24 09:[address] 125 Mg Tablet PO 375 mg BID DANUTA Administration Guaifenesin 1,200 mg 02/10/24 11:00 Guaifenesin 600 Mg Tablet PO BID DANUTA Sodium Chloride 1,000 mls @ 125 mls/hr 02/10/24 10:00 02/10/24 09:36 Normal Saline 0.9% IV 02/10/24 17:59 125 mls/hr .Q8H DANUTA Administration Loratadine 10 mg 02/10/24 09:00 02/10/24 09:00 Loratadine 10 Mg Tablet PO 10 mg DAILY DANUTA Administration Metoprolol Tartrate 50 mg 02/09/24 21:00 02/10/24 09:01 Metoprolol Tartrate 50 Mg Tablet PO 50 mg BID DANUTA Administration Metronidazole 500 mg 02/10/24 12:00 Metronidazole 250 Mg Tablet PO TIDWM DANUTA Ondansetron HCl 4 mg 02/09/24 14:51 Ondansetron Odt 4 Mg Tablet TL Q6HR PRN Nausea / Vomiting Ondansetron HCl 4 mg 02/09/24 14:51 Ondansetron 4 Mg/2 Ml Vial IVP Q6HR PRN Nausea / Vomiting Quetiapine Fumarate 150 mg 02/09/24 21:00 02/10/24 09:00 Quetiapine 25 Mg Tablet PO 150 mg BID DANUTA Administration Quetiapine Fumarate 100 mg 02/10/24 12:00 Quetiapine 100 Mg Tablet PO 1200 DANUTA Sodium Chloride 10 ml 02/09/24 14:51 Sodium Chloride Flush 0.9% 10 Ml Syringe IVP PRN PRN NEEDED PER PROVIDER ORDERS Sodium Chloride 10 ml 02/09/24 17:00 02/10/24 09:02 Sodium Chloride Flush 0.9% 10 Ml Syringe IVP 10 ml 0100,0900,1700 DANUTA Administration Tamsulosin HCl 0.8 mg 02/09/24 21:00 02/09/24 21:04 Tamsulosin 0.4 Mg Capsule PO 0.8 mg QPM DANUTA Administration Trazodone HCl 50 mg 02/09/24 21:00 02/09/24 21:03 Trazodone 50 Mg Tablet PO 50 mg HS DANUTA Administration Objective Vital Signs/Intake & Output Reviewed Vital Signs: Yes Vital Signs: Vital Signs x48h Temp Pulse Pulse Resp BP BP Pulse Ox 02/10/24 10:14 02/10/24 09:01 129 H 149/86 H 02/10/24 09:00 36.6 C 133 H 22 149/86 H 94 02/10/24 05:58 130 H 130/71 02/10/24 04:37 137 H 141/88 H 02/10/24 04:36 139 H 141/88 H 02/10/24 04:01 36.5 C 122 H 22 123/81 95 02/10/24 03:48 132 H 134/89 H 02/10/24 03:46 144 H 134/89 H 02/10/24 03:15 116 H 140/84 H 02/10/24 03:10 135 H 126/75 02/10/24 03:05 121 H 134/79 H 02/10/24 02:57 129 H 115/76 O2 Flow Rate 02/10/24 10:14 4 02/10/24 09:01 02/10/24 09:00 4 02/10/24 05:58 02/10/24 04:37 02/10/24 04:36 02/10/24 04:01 5 02/10/24 03:48 02/10/24 03:46 02/10/24 03:15 02/10/24 03:10 02/10/24 03:05 02/10/24 02:57 Intake & Output: Intake & Output 02/07/24 02/08/24 02/09/24 02/10/24 23:59 23:59 23:59 23:59 Intake Total 2490 / 2490 1608 / 1608 Balance 2490 / 2490 1608 / 1608 Weight (kg) 101 kg Objective General Appearance: positive No acute distress Eyes Bilateral: positive Normal inspection ENT: positive No signs of dehydration Neck: positive No JVD Respiratory: positive Chest non-tender and Rhonchi Cardiovascular: positive Irregularly irregular and Tachycardia Abdomen: positive Non-tender Skin: positive Color nml Extremities: positive Non-tender and Other (Redness in bilateral legs) Neurologic/Psychiatric: positive Other (Variable levels of orientation) Lab Results 02/10/24 05:37 02/10/24 05:37 Other Labs: Lab Results x24hrs 02/10/24 02/09/24 02/09/24 Range/Units 05:37 17:31 13:18 WBC 11.4 H 11.5 H (4.8-10.8) x10^3/uL RBC 4.12 L 4.56 L (4.70-6.10) 10^6/uL Hgb 12.3 L 13.4 L (14.0-18.0) g/dL Hct 38.2 L 42.9 (42.0-52.0) % MCV 92.7 94.1 H (80.0-94.0) fL MCH 29.9 29.4 (27.0-31.0) pg MCHC 32.2 31.2 L (32.0-36.0) g/dL RDW 14.4 14.4 (12.0-15.0) % Plt Count 131 128 L (130-450) 10^3/uL MPV 9.2 8.9 (7.4-11.4) fL Neut # (Auto) 6.8 H 7.3 H (1.5-6.6) 10^3/uL Lymph # (Auto) 3.8 H 3.1 (1.5-3.5) 10^3/uL [place] # (Auto) 0.8 1.0 (0.0-1.0) 10^3/uL Eos # (Auto) 0.0 0.0 (0.0-0.7) 10^3/uL Baso # (Auto) 0.0 0.0 (0.0-0.1) 10^3/uL Absolute Nucleated RBC 0.00 0.00 x10^3/uL Nucleated RBC % 0.0 0.0 /100WBC Sodium 128 L 130 L 129 L (135-145) mmol/L Potassium 4.0 4.5 (3.5-4.5) mmol/L Chloride 93 L 91 L (101-111) mmol/L Carbon Dioxide 29 31 (21-32) mmol/L Anion Gap 6.0 7.0 (6-13) BUN 10 15 (6-20) mg/dL Creatinine 0.7 0.8 (0.6-1.3) mg/dL Estimated GFR (MDRD) 109 93 (>89) Glucose 110 H 118 H (74-104) mg/dL Calcium 8.0 L 8.8 (8.5-10.3) mg/dL Total Bilirubin 0.5 (0.2-1.0) mg/dL AST 26 (10-42) IU/L ALT 12 (10-60) IU/L Alkaline Phosphatase 42 (42-121) IU/L Total Protein 7.3 (6.4-8.9) g/dL Albumin 3.6 (3.2-5.5) g/dL Globulin 3.7 (2.1-4.2) g/dL Albumin/Globulin Ratio 1.0 (1.0-2.2) Procalcitonin Immunoas 0.09 (<0.5) ng/mL Nasal Adenovirus (PCR) Nasal B. parapertussis DNA (PCR) Nasal Coronavir 229E PCR Nasal Coronavir HKU1 PCR Nasal Coronavir NL63 PCR Nasal Coronavir OC43 PCR Nasal Enterovir/Rhinovir PCR Nasal Influenza B PCR Nasal Influenza A PCR Nasal Parainfluen 1 PCR Nasal Parainfluen 2 PCR Nasal Parainfluen 3 PCR Nasal Parainfluen 4 PCR Nasal RSV (PCR) Nasal B.pertussis DNA PCR Nasal C.pneumoniae (PCR) Damaso Human Metapneumo PCR Nasal M.pneumoniae (PCR) Nasal SARS-CoV-2 (PCR) 02/09/24 Range/Units 12:50 WBC (4.8-10.8) x10^3/uL RBC (4.70-6.10) 10^6/uL Hgb (14.0-18.0) g/dL Hct (42.0-52.0) % MCV (80.0-94.0) fL MCH (27.0-31.0) pg MCHC (32.0-36.0) g/dL RDW (12.0-15.0) % Plt Count (130-450) 10^3/uL MPV (7.4-11.4) fL Neut # (Auto) (1.5-6.6) 10^3/uL Lymph # (Auto) (1.5-3.5) 10^3/uL [place] # (Auto) (0.0-1.0) 10^3/uL Eos # (Auto) (0.0-0.7) 10^3/uL Baso # (Auto) (0.0-0.1) 10^3/uL Absolute Nucleated RBC x10^3/uL Nucleated RBC % /100WBC Sodium (135-145) mmol/L Potassium (3.5-4.5) mmol/L Chloride (101-111) mmol/L Carbon Dioxide (21-32) mmol/L Anion Gap (6-13) BUN (6-20) mg/dL Creatinine (0.6-1.3) mg/dL Estimated GFR (MDRD) (>89) Glucose (74-104) mg/dL Calcium (8.5-10.3) mg/dL Total Bilirubin (0.2-1.0) mg/dL AST (10-42) IU/L ALT (10-60) IU/L Alkaline Phosphatase (42-121) IU/L Total Protein (6.4-8.9) g/dL Albumin (3.2-5.5) g/dL Globulin (2.1-4.2) g/dL Albumin/Globulin Ratio (1.0-2.2) Procalcitonin Immunoas (<0.5) ng/mL Nasal Adenovirus (PCR) NOT DETECTED Nasal B. parapertussis DNA (PCR) NOT DETECTED Nasal Coronavir 229E PCR NOT DETECTED Nasal Coronavir HKU1 PCR NOT DETECTED Nasal Coronavir NL63 PCR NOT DETECTED Nasal Coronavir OC43 PCR NOT DETECTED Nasal Enterovir/Rhinovir PCR NOT DETECTED Nasal Influenza B PCR NOT DETECTED Nasal Influenza A PCR NOT DETECTED Nasal Parainfluen 1 PCR NOT DETECTED Nasal Parainfluen 2 PCR NOT DETECTED Nasal Parainfluen 3 PCR NOT DETECTED Nasal Parainfluen 4 PCR NOT DETECTED Nasal RSV (PCR) DETECTED A Nasal B.pertussis DNA PCR NOT DETECTED Nasal C.pneumoniae (PCR) NOT DETECTED Damaso Human Metapneumo PCR NOT DETECTED Nasal M.pneumoniae (PCR) NOT DETECTED Nasal SARS-CoV-2 (PCR) NOT DETECTED Assessment/Plan Problem List (1) Acute hypoxic respiratory failure: Impression: O2 as needed Manage pneumonia as below (2) Community acquired pneumonia of left lower lobe of lung: Impression: Continue Rocephin for 5-day course, azithromycin for 3-day course Encourage pulmonary hygiene Added guaifenesin Nursing reported a aspiration event earlier today, adding Flagyl Would benefit from speech therapy consultation. This is not available at this hospital, so he will need this at discharge (3) Hyponatremia: Impression: Sodium 128 on morning labs Add UA NS at 125 Sodium every 4 until sodium above 130 (4) Atrial fibrillation: Impression: Tachycardia overnight. Overnight doc added IV metoprolol, IVF Changed IVF to NS given hyponatremia Eliquvitaly, home dose metoprolol Telemetry (5) Hypertension: Impression: Home dose metoprolol (6) Dementia: Impression: Maintain good sleep hygiene Seroquel (7) BPH (benign prostatic hyperplasia): Impression: Flomax
[2024-02-10] MEDS: guaiFENesin 600 MG TABLET PO SCH (12:33)
[2024-02-10] MEDS: metroNIDAZOLE 250 MG TABLET PO SCH (12:34)
[2024-02-10] MEDS: QUEtiapine 100 MG TABLET PO SCH (12:34)
[2024-02-10] MEDS ORDERED: METOPROLOL 5 MG/5 ML VIAL IVP PRN (14:53)
[2024-02-10 15:11] LABS: ABG PCO2 41 mmHg (34-45); ABG PH 7.38 (7.35-7.45)
[2024-02-10 15:12] LABS: ABG BASE EXCESS -1.6 mmol/L (-2.0-3.0); ABG HCO3 23.4 mmol/L (22.0-26.0); ABG PO2 52 mmHg (80-100); ABG TCO2 24.7 MMOL/L (21.0-29.0)
[2024-02-10 15:15] LABS: ABG OXYGEN SATURATION 87 % (94-98); ALLEN TEST POSITIVE
[2024-02-10] MEDS ORDERED: diltiaZEM INJ 5 MG/ML VIAL IVP PRN (15:23)
[2024-02-10] MEDS: diltiaZEM INJ 5 MG/ML VIAL IVP ONE (15:37)
--- NOTE | 2024-02-10 16:34 | XRAY Report ---
PROCEDURE: XR Chest 1V INDICATIONS: Worsening respiratory status, Aspiration TECHNIQUE: One view of the chest was acquired. COMPARISON: 02/09/2024. FINDINGS: Surgical changes and devices: None. Lungs and pleura: No pleural effusions or pneumothorax. Patchy bibasilar atelectasis.. aleksandra Mediastinum: Mediastinal contours appear normal. Heart size is normal. Bones and chest wall: No suspicious bony lesions. Overlying soft tissues appear unremarkable. IMPRESSION: Patchy bibasilar atelectasis. Reviewed by: Ciro Andrade MD on 02/10/2024 4:32 PM PST Approved by: Ciro Andrade MD on 02/10/2024 4:32 PM PST Station ID: [id number]
[2024-02-10] MEDS: diltiaZEM 30 MG TABLET PO SCH (17:19)
[2024-02-10] MEDS: FUROSEMIDE 40 MG/4 ML VIAL IVP STA (19:34)
[2024-02-10] MEDS: metroNIDAZOLE 500 MG/100 ML 500 MG/100 ML BAG IV SCH (21:34)
[2024-02-10] MEDS: diltiaZEM INJ 5 MG/ML VIAL IVP PRN (21:50)
--- NOTE | 2024-02-10 22:05 | MISCELLANEOUS PROVIDER NOTE ---
Miscellaneous Provider Note - Note: Mentation is altered, heart rhythm is A-fib with RVR. He received his morning dose of metoprolol tartrate. He received one-time dose of diltiazem IV with good effect. I started p.o. diltiazem, and he did take 1 dose of that. He is now not taking any medication. I have ordered his metoprolol to be switched to IV scheduled. I have also ordered a as needed diltiazem 10 mg push every 2 hours as there is currently not an ICU bed available and this facility cannot do diltiazem drips on the floor If this does not sufficiently control his heart rate, nursing has been instructed to call telehealth and request transfer to the ICU.
[2024-02-10 22:58] LABS: BILIRUBIN,URINE NEGATIVE (NEGATIVE); GLUCOSE, URINE (UA) NEGATIVE (NEGATIVE); KETONES,URINE (UA) NEGATIVE (NEGATIVE); LEUKOCYTE ESTERASE, URINE NEGATIVE (NEGATIVE); NITRITE,URINE NEGATIVE (NEGATIVE); OCCULT BLOOD,URINE NEGATIVE (NEGATIVE); PROTEIN,URINE NEGATIVE (NEGATIVE); UROBILINOGEN,URINE 0.2 (NORMAL) E.U./dL (NORMAL)
[2024-02-10 23:02] LABS: CLARITY,URINE CLEAR (CLEAR)
[2024-02-10] MEDS: METOPROLOL 5 MG/5 ML VIAL IVP SCH (23:22)
[2024-02-11 03:22] LABS: BASOPHILS % (AUTO) 0.2 %; HCT - HEMATOCRIT 37.5 % (42.0-52.0); LYMPHOCYTES # (AUTO) 3.3 10^3/uL (1.5-3.5); LYMPHOCYTES % (AUTO) 33.5 %; MEAN CORPUSCULAR HEMOGLOBIN 29.7 pg (27.0-31.0); MEAN CORPUSCULAR VOLUME 92.8 fL (80.0-94.0); MONOCYTES # (AUTO) 0.6 10^3/uL (0.0-1.0); MONOCYTES % (AUTO) 6.2 %; NEUTROPHILS # (AUTO) 5.9 10^3/uL (1.5-6.6); NEUTROPHILS % (AUTO) 59.5 %; PLT - PLATELET COUNT 108 10^3/uL (130-450); RED BLOOD COUNT 4.04 10^6/uL (4.70-6.10); RED CELL DISTRIBUTION WIDTH 14.4 % (12.0-15.0)
[2024-02-11 03:36] LABS: CALCIUM 8.3 mg/dL (8.5-10.3); CREATININE 0.8 mg/dL (0.6-1.3); POTASSIUM 3.7 mmol/L (3.5-4.5)
[2024-02-11] MEDS: AZITHROMYCIN INJ 500 MG in SODIUM CHLORIDE 0.9% 250 ML IV SCH (08:30)
[2024-02-11] MEDS: METOPROLOL TARTRATE 50 MG TABLET PO SCH (11:50)
--- NOTE | 2024-02-11 12:40 | PROVIDER PROGRESS NOTE ---
Subjective Prog Note Date Prog Note Date: 02/11/24 Subjective Pt reports feeling: Improved Current Medications Current Medications Current Medications: Current Medications Generic Name Dose Route Start Last Admin Trade Name Freq PRN Reason Stop Dose Admin Acetaminophen 650 mg 02/09/24 14:51 Acetaminophen 325 Mg Tablet PO Q4HR PRN Pain 1 to 4, or Fever Allopurinol 100 mg 02/10/24 09:00 02/11/24 10:04 Allopurinol 100 Mg Tablet PO 100 mg DAILY DANUTA Administration Apixaban 5 mg 02/09/24 21:00 02/11/24 08:40 Apixaban 5 Mg Tablet PO 5 mg BID DANUTA Administration Benzonatate 100 mg 02/10/24 02:43 02/10/24 09:00 Benzonatate 100 Mg Capsule PO 100 mg TID PRN Administration Cough Ceftriaxone Sodium 1 gm 02/10/24 09:00 02/11/24 08:24 Ceftriaxone 1 Gm Vial IVP 02/14/24 08:59 1 gm DAILY DANUTA Administration Diltiazem HCl 30 mg 02/10/24 18:00 02/11/24 12:30 Diltiazem 30 Mg Tablet PO 30 mg Q6HR DANUTA Administration Diltiazem HCl 10 mg 02/10/24 21:44 02/10/24 21:50 Diltiazem Inj 5 Mg/Ml Vial IVP 02/11/24 21:43 10 mg ONCE PRN Administration Tachycardia Diltiazem HCl 10 mg 02/10/24 21:57 Diltiazem Inj 5 Mg/Ml Vial IVP Q2H PRN Tachycardia Divalproex Sodium 375 mg 02/09/24 21:00 02/11/24 08:[address] 125 Mg Tablet PO 375 mg BID DANUTA Administration Guaifenesin 1,200 mg 02/10/24 11:00 02/11/24 08:40 Guaifenesin 600 Mg Tablet PO 1,200 mg BID DANUTA Administration Metronidazole 500 mg in 100 mls @ 100 mls/hr 02/10/24 21:00 02/11/24 11:33 Flagyl 500 Mg/100 Ml IV Infused TID DANUTA Infusion Sodium Chloride 1,000 mls @ 125 mls/hr 02/10/24 21:00 02/10/24 21:49 Normal Saline 0.9% IV 125 mls/hr .Q8H DANUTA Administration Loratadine 10 mg 02/10/24 09:00 02/11/24 08:41 Loratadine 10 Mg Tablet PO 10 mg DAILY DANUTA Administration Metoprolol Tartrate 5 mg 02/10/24 22:02 02/11/24 11:10 Metoprolol 5 Mg/5 Ml Vial IVP 5 mg Q6H DANUTA Administration Metoprolol Tartrate 100 mg 02/11/24 11:00 02/11/24 11:50 Metoprolol Tartrate 50 Mg Tablet PO 100 mg BID DANUTA Administration Ondansetron HCl 4 mg 02/09/24 14:51 Ondansetron Odt 4 Mg Tablet TL Q6HR PRN Nausea / Vomiting Ondansetron HCl 4 mg 02/09/24 14:51 Ondansetron 4 Mg/2 Ml Vial IVP Q6HR PRN Nausea / Vomiting Quetiapine Fumarate 150 mg 02/09/24 21:00 02/11/24 08:41 Quetiapine 25 Mg Tablet PO 150 mg BID DANUTA Administration Quetiapine Fumarate 100 mg 02/10/24 12:00 02/10/24 12:34 Quetiapine 100 Mg Tablet PO 100 mg 1200 DANUTA Administration Sodium Chloride 10 ml 02/09/24 14:51 Sodium Chloride Flush 0.9% 10 Ml Syringe IVP PRN PRN NEEDED PER PROVIDER ORDERS Sodium Chloride 10 ml 02/09/24 17:00 02/11/24 08:44 Sodium Chloride Flush 0.9% 10 Ml Syringe IVP 10 ml 0100,0900,1700 DANUTA Administration Tamsulosin HCl 0.8 mg 02/09/24 21:00 02/10/24 22:01 Tamsulosin 0.4 Mg Capsule PO Not Given QPM [facility] Trazodone HCl 50 mg 02/09/24 21:00 02/10/24 22:02 Trazodone 50 Mg Tablet PO Not Given HS [facility] Objective Vital Signs/Intake & Output Reviewed Vital Signs: Yes Vital Signs: Vital Signs x48h Temp Pulse Pulse Resp BP BP Pulse Ox 02/11/24 12:30 128 H 131/86 H 02/11/24 11:59 116 H 120/73 02/11/24 11:50 112 H 125/79 02/11/24 11:33 113 H 107/66 02/11/24 11:30 108 H 107/58 L 02/11/24 11:27 97 107/52 L 02/11/24 11:10 137 H 107/61 02/11/24 11:02 137 H 107/61 02/11/24 10:08 95 02/11/24 10:00 02/11/24 08:57 37.0 C 02/11/24 08:47 91 H 02/11/24 08:46 129 H 111/63 02/11/24 06:52 134 H 120/74 O2 Flow Rate 02/11/24 12:30 02/11/24 11:59 02/11/24 11:50 02/11/24 11:33 02/11/24 11:30 02/11/24 11:27 02/11/24 11:10 02/11/24 11:02 02/11/24 10:08 3 02/11/24 10:00 3 02/11/24 08:57 02/11/24 08:47 2.5 02/11/24 08:46 02/11/24 06:52 Intake & Output: Intake & Output 02/08/24 02/09/24 02/10/24 02/11/24 23:59 23:59 23:59 23:59 Intake Total 2490 / 2490 3408 / 3408 340 / 340 Output Total 850 / 850 Balance 2490 / 2490 2558 / 2558 340 / 340 Weight (kg) 101 kg Objective General Appearance: positive No acute distress Eyes Bilateral: positive Normal inspection ENT: positive No signs of dehydration Neck: positive No JVD Respiratory: positive Chest non-tender and Rhonchi Cardiovascular: positive Irregularly irregular and Tachycardia Abdomen: positive Non-tender Skin: positive Color nml Extremities: positive Non-tender and Other (Redness in bilateral legs) Neurologic/Psychiatric: positive Other (Today oriented x 2, mentation improved) Lab Results 02/11/24 03:18 02/11/24 07:24 Other Labs: Lab Results x24hrs 02/11/24 02/11/24 02/10/24 Range/Units 07:24 03:18 23:00 WBC 10.0 (4.8-10.8) x10^3/uL RBC 4.04 L (4.70-6.10) 10^6/uL Hgb 12.0 L (14.0-18.0) g/dL Hct 37.5 L (42.0-52.0) % MCV 92.8 (80.0-94.0) fL MCH 29.7 (27.0-31.0) pg MCHC 32.0 (32.0-36.0) g/dL RDW 14.4 (12.0-15.0) % Plt Count 108 L (130-450) 10^3/uL MPV 9.0 (7.4-11.4) fL Neut # (Auto) 5.9 (1.5-6.6) 10^3/uL Lymph # (Auto) 3.3 (1.5-3.5) 10^3/uL [place] # (Auto) 0.6 (0.0-1.0) 10^3/uL Eos # (Auto) 0.0 (0.0-0.7) 10^3/uL Baso # (Auto) 0.0 (0.0-0.1) 10^3/uL Absolute Nucleated RBC 0.00 x10^3/uL Nucleated RBC % 0.0 /100WBC Bld Gas Analysis Time Sample Site ABG pH (7.35-7.45) ABG pCO2 (34-45) mmHg ABG pO2 (80-100) mmHg ABG HCO3 (22.0-26.0) mmol/L ABG Total CO2 (21.0-29.0) MMOL/L ABG O2 Saturation (94-98) % ABG Base Excess (-2.0-3.0) mmol/L Addi Test O2 Delivery Device O2 Liters/Min LPM PEEP cmH2O Sodium 131 L 132 L 131 L (135-145) mmol/L Potassium 3.7 (3.5-4.5) mmol/L Chloride 95 L (101-111) mmol/L Carbon Dioxide 30 (21-32) mmol/L Anion Gap 7.0 (6-13) BUN 11 (6-20) mg/dL Creatinine 0.8 (0.6-1.3) mg/dL Estimated GFR (MDRD) 93 (>89) Glucose 115 H (74-104) mg/dL Calcium 8.3 L (8.5-10.3) mg/dL Magnesium (1.7-2.3) mg/dL Urine Color Urine Clarity (CLEAR) Urine pH (5.0-7.5) PH Ur Specific [place] (1.002-1.030) Urine Protein (NEGATIVE) mg/dL Urine Glucose (UA) (NEGATIVE) mg/dL Urine Ketones (NEGATIVE) mg/dL Urine Occult Blood (NEGATIVE) Urine Nitrite (NEGATIVE) Urine Bilirubin (NEGATIVE) Urine Urobilinogen (NORMAL) E.U./dL Ur Leukocyte Esterase (NEGATIVE) Ur Microscopic Review Urine Culture Comments 02/10/24 02/10/24 02/10/24 Range/Units 21:45 18:35 15:56 WBC (4.8-10.8) x10^3/uL RBC (4.70-6.10) 10^6/uL Hgb (14.0-18.0) g/dL Hct (42.0-52.0) % MCV (80.0-94.0) fL MCH (27.0-31.0) pg MCHC (32.0-36.0) g/dL RDW (12.0-15.0) % Plt Count (130-450) 10^3/uL MPV (7.4-11.4) fL Neut # (Auto) (1.5-6.6) 10^3/uL Lymph # (Auto) (1.5-3.5) 10^3/uL [place] # (Auto) (0.0-1.0) 10^3/uL Eos # (Auto) (0.0-0.7) 10^3/uL Baso # (Auto) (0.0-0.1) 10^3/uL Absolute Nucleated RBC x10^3/uL Nucleated RBC % /100WBC Bld Gas Analysis Time Sample Site ABG pH (7.35-7.45) ABG pCO2 (34-45) mmHg ABG pO2 (80-100) mmHg ABG HCO3 (22.0-26.0) mmol/L ABG Total CO2 (21.0-29.0) MMOL/L ABG O2 Saturation (94-98) % ABG Base Excess (-2.0-3.0) mmol/L Addi Test O2 Delivery Device O2 Liters/Min LPM PEEP cmH2O Sodium 125 L 126 L (135-145) mmol/L Potassium (3.5-4.5) mmol/L Chloride (101-111) mmol/L Carbon Dioxide (21-32) mmol/L Anion Gap (6-13) BUN (6-20) mg/dL Creatinine (0.6-1.3) mg/dL Estimated GFR (MDRD) (>89) Glucose (74-104) mg/dL Calcium (8.5-10.3) mg/dL Magnesium (1.7-2.3) mg/dL Urine Color YELLOW Urine Clarity CLEAR (CLEAR) Urine pH 6.0 (5.0-7.5) PH Ur Specific [place] 1.010 (1.002-1.030) Urine Protein NEGATIVE (NEGATIVE) mg/dL Urine Glucose (UA) NEGATIVE (NEGATIVE) mg/dL Urine Ketones NEGATIVE (NEGATIVE) mg/dL Urine Occult Blood NEGATIVE (NEGATIVE) Urine Nitrite NEGATIVE (NEGATIVE) Urine Bilirubin NEGATIVE (NEGATIVE) Urine Urobilinogen 0.2 (NORMAL) (NORMAL) E.U./dL Ur Leukocyte Esterase NEGATIVE (NEGATIVE) Ur Microscopic Review NOT INDICATED Urine Culture Comments NOT INDICATED 02/10/24 02/10/24 Range/Units 14:55 05:37 WBC (4.8-10.8) x10^3/uL RBC (4.70-6.10) 10^6/uL Hgb (14.0-18.0) g/dL Hct (42.0-52.0) % MCV (80.0-94.0) fL MCH (27.0-31.0) pg MCHC (32.0-36.0) g/dL RDW (12.0-15.0) % Plt Count (130-450) 10^3/uL MPV (7.4-11.4) fL Neut # (Auto) (1.5-6.6) 10^3/uL Lymph # (Auto) (1.5-3.5) 10^3/uL [place] # (Auto) (0.0-1.0) 10^3/uL Eos # (Auto) (0.0-0.7) 10^3/uL Baso # (Auto) (0.0-0.1) 10^3/uL Absolute Nucleated RBC x10^3/uL Nucleated RBC % /100WBC Bld Gas Analysis Time 1508 Sample Site RIGHT RADIAL ABG pH 7.38 (7.35-7.45) ABG pCO2 41 (34-45) mmHg ABG pO2 52 L (80-100) mmHg ABG HCO3 23.4 (22.0-26.0) mmol/L ABG Total CO2 24.7 (21.0-29.0) MMOL/L ABG O2 Saturation 87 L* (94-98) % ABG Base Excess -1.6 (-2.0-3.0) mmol/L Addi Test POSITIVE O2 Delivery Device C-PAP O2 Liters/Min 7.00 LPM PEEP 12 cmH2O Sodium (135-145) mmol/L Potassium (3.5-4.5) mmol/L Chloride (101-111) mmol/L Carbon Dioxide (21-32) mmol/L Anion Gap (6-13) BUN (6-20) mg/dL Creatinine (0.6-1.3) mg/dL Estimated GFR (MDRD) (>89) Glucose (74-104) mg/dL Calcium (8.5-10.3) mg/dL Magnesium 1.9 (1.7-2.3) mg/dL Urine Color Urine Clarity (CLEAR) Urine pH (5.0-7.5) PH Ur Specific [place] (1.002-1.030) Urine Protein (NEGATIVE) mg/dL Urine Glucose (UA) (NEGATIVE) mg/dL Urine Ketones (NEGATIVE) mg/dL Urine Occult Blood (NEGATIVE) Urine Nitrite (NEGATIVE) Urine Bilirubin (NEGATIVE) Urine Urobilinogen (NORMAL) E.U./dL Ur Leukocyte Esterase (NEGATIVE) Ur Microscopic Review Urine Culture Comments Assessment/Plan Problem List (1) Acute hypoxic respiratory failure: Impression: O2 as needed, CPAP when asleep Manage pneumonia as below (2) Community acquired pneumonia of left lower lobe of lung: Impression: Continue Rocephin for 5-day course. Today was last dose of azithromycin Encourage pulmonary hygiene Added guaifenesin Aspiration event 02/10/2024, Flagyl has been added Would benefit from speech therapy consultation. This is not available at this hospital, so he will need this at discharge (3) Hyponatremia: Impression: UA unremarkable Received NS drip 02/11/2024: Sodium 131. De-escalating sodium checks to daily BMPs, Stop saline (4) Atrial fibrillation: Impression: Has history of atrial fibrillation, managed on twice daily metoprolol. He has had sustained tachycardia while here. I have added scheduled p.o. Cardizem and increased his dose of metoprolol to 100 twice daily. I have added an echo to evaluate for CHF. Continue home dose of Eliquis. Continue telemetry (5) Hypertension: Impression: Metoprolol, Cardizem as above (6) Dementia: Impression: Maintain good sleep hygiene, Added CPAP at night for witnessed sleep apnea Seroquel (7) BPH (benign prostatic hyperplasia): Impression: Flomax
[2024-02-11] MEDS: SODIUM CHLORIDE FLUSH 0.9% 10 ML SYRINGE IVP PRN (13:22)
[2024-02-11] MEDS: diltiaZEM 30 MG TABLET PO SCH (17:33)
--- NOTE | 2024-02-11 17:57 | Ultrasound Report ---
PROCEDURE: US Venous Duplex LT INDICATIONS: LLE SWELLING TECHNIQUE: Real-time imaging, as well as color and pulse Doppler interrogation, were performed of the lower extr emity deep veins from the inguinal ligament to the popliteal fossa. Attempted visualization of the ca lf veins was performed. COMPARISON: None. FINDINGS: The deep veins are normally compressible, and free of intraluminal thrombus. Color and pu lse Doppler demonstrate normal phasic intraluminal flow. There is normal augmentation response to di stal compression maneuver. IMPRESSION: No deep venous thrombosis of the visualized lower extremity. Reviewed by: Darren Anguiano MD on 02/11/2024 5:55 PM PST Approved by: Darren Anguiano MD on 02/11/2024 5:55 PM PST Station ID: [id number]
--- NOTE | 2024-02-12 00:29 | PROVIDER PROGRESS NOTE ---
Hospitalist Cross-cover Note Cross-Cover Note Cross-Cover Note: Notified by RN pt with previous 2 sec pause, longest 3.5 sec pause. Currently BP 88/53, HR 50s. Hold further doses of metoprolol/diltiazem. 500 cc IV fluid bolus ordered. Continue to monitor closely.
[2024-02-12] MEDS: SODIUM CHLORIDE 0.9% 500 ML IV ONE (00:51)
[2024-02-12 05:59] LABS: BASOPHILS % (AUTO) 0.3 %; EOSINOPHILS % (AUTO) 0.2 %; HCT - HEMATOCRIT 35.5 % (42.0-52.0); HGB - HEMOGLOBIN 11.2 g/dL (14.0-18.0); LYMPHOCYTES # (AUTO) 3.5 10^3/uL (1.5-3.5); LYMPHOCYTES % (AUTO) 38.5 %; MEAN CORPUSCULAR HEMOGLOBIN 29.7 pg (27.0-31.0); MEAN CORPUSCULAR HGB CONC 31.5 g/dL (32.0-36.0); MEAN CORPUSCULAR VOLUME 94.2 fL (80.0-94.0); MEAN PLATELET VOLUME 9.3 fL (7.4-11.4); MONOCYTES # (AUTO) 0.7 10^3/uL (0.0-1.0); MONOCYTES % (AUTO) 7.5 %; NEUTROPHILS # (AUTO) 4.8 10^3/uL (1.5-6.6); NEUTROPHILS % (AUTO) 52.5 %; PLT - PLATELET COUNT 115 10^3/uL (130-450); RED BLOOD COUNT 3.77 10^6/uL (4.70-6.10); RED CELL DISTRIBUTION WIDTH 14.3 % (12.0-15.0); WHITE BLOOD COUNT 9.2 x10^3/uL (4.8-10.8)
[2024-02-12 06:31] LABS: CALCIUM 7.8 mg/dL (8.5-10.3); CREATININE 0.6 mg/dL (0.6-1.3); POTASSIUM 3.6 mmol/L (3.5-4.5)
[2024-02-12] MEDS: FUROSEMIDE 20 MG/2 ML VIAL IVP SCH (10:40)
--- NOTE | 2024-02-12 15:15 | PROVIDER PROGRESS NOTE ---
Subjective Prog Note Date Prog Note Date: 02/12/24 Subjective Pt reports feeling: No change Current Medications Current Medications Current Medications: Current Medications Generic Name Dose Route Start Last Admin Trade Name Sudha PRN Reason Stop Dose Admin Acetaminophen 650 mg 02/09/24 14:51 Acetaminophen 325 Mg Tablet PO Q4HR PRN Pain 1 to 4, or Fever Allopurinol 100 mg 02/10/24 09:00 02/12/24 08:07 Allopurinol 100 Mg Tablet PO 100 mg DAILY DANUTA Administration Apixaban 5 mg 02/09/24 21:00 02/12/24 08:06 Apixaban 5 Mg Tablet PO 5 mg BID DANUTA Administration Benzonatate 100 mg 02/10/24 02:43 02/10/24 09:00 Benzonatate 100 Mg Capsule PO 100 mg TID PRN Administration Cough Ceftriaxone Sodium 1 gm 02/10/24 09:00 02/12/24 08:05 Ceftriaxone 1 Gm Vial IVP 02/14/24 08:59 1 gm DAILY DANUTA Administration Diltiazem HCl 10 mg 02/10/24 21:57 Diltiazem Inj 5 Mg/Ml Vial IVP Q2H PRN Tachycardia Divalproex Sodium 375 mg 02/09/24 21:00 02/12/24 08:[address] 125 Mg Tablet PO 375 mg BID DANUTA Administration Furosemide 20 mg 02/12/24 10:00 02/12/24 10:40 Furosemide 20 Mg/2 Ml Vial IVP 20 mg DAILY DANUTA Administration Guaifenesin 1,200 mg 02/10/24 11:00 02/12/24 08:06 Guaifenesin 600 Mg Tablet PO 1,200 mg BID DANUTA Administration Metronidazole 500 mg in 100 mls @ 100 mls/hr 02/10/24 21:00 02/12/24 14:49 Flagyl 500 Mg/100 Ml IV Infused TID DANUTA Infusion Loratadine 10 mg 02/10/24 09:00 02/12/24 08:06 Loratadine 10 Mg Tablet PO 10 mg DAILY DANUTA Administration Metoprolol Tartrate 5 mg 02/11/24 15:42 Metoprolol 5 Mg/5 Ml Vial IVP Q6H PRN Hypertensive Emergency Ondansetron HCl 4 mg 02/09/24 14:51 Ondansetron Odt 4 Mg Tablet TL Q6HR PRN Nausea / Vomiting Ondansetron HCl 4 mg 02/09/24 14:51 Ondansetron 4 Mg/2 Ml Vial IVP Q6HR PRN Nausea / Vomiting Quetiapine Fumarate 150 mg 02/09/24 21:00 02/12/24 08:06 Quetiapine 25 Mg Tablet PO 150 mg BID DANUTA Administration Quetiapine Fumarate 100 mg 02/10/24 12:00 02/12/24 13:21 Quetiapine 100 Mg Tablet PO 100 mg 1200 DANUTA Administration Sodium Chloride 10 ml 02/09/24 14:51 02/12/24 10:40 Sodium Chloride Flush 0.9% 10 Ml Syringe IVP 10 ml PRN PRN Administration NEEDED PER PROVIDER ORDERS Sodium Chloride 10 ml 02/09/24 17:00 02/12/24 08:08 Sodium Chloride Flush 0.9% 10 Ml Syringe IVP 10 ml 0100,0900,1700 DANUTA Administration Tamsulosin HCl 0.8 mg 02/09/24 21:00 02/11/24 20:15 Tamsulosin 0.4 Mg Capsule PO 0.8 mg QPM DANUTA Administration Trazodone HCl 50 mg 02/09/24 21:00 02/11/24 20:12 Trazodone 50 Mg Tablet PO 50 mg HS DANUTA Administration Objective Vital Signs/Intake & Output Reviewed Vital Signs: Yes Vital Signs: Vital Signs x48h Temp Pulse Resp BP Pulse Ox O2 Flow Rate 02/12/24 13:00 36.6 C 81 21 95 3 02/12/24 08:22 36.9 C 98 20 101/78 95 3 02/12/24 07:15 3 Intake & Output: Intake & Output 02/09/24 02/10/24 02/11/24 02/12/24 23:59 23:59 23:59 23:59 Intake Total 2490 / 2490 3408 / 3408 3597 / 3597 1120 / 1120 Output Total 850 / 850 Balance 2490 / 2490 2558 / 2558 3597 / 3597 1120 / 1120 Weight (kg) 101 kg Objective General Appearance: positive No acute distress Eyes Bilateral: positive Normal inspection ENT: positive No signs of dehydration Neck: positive No JVD Respiratory: positive Chest non-tender and Rhonchi Cardiovascular: positive Regular rate & rhythm Abdomen: positive Non-tender Skin: positive Color nml Extremities: positive Non-tender and Other (Redness in bilateral legs) Neurologic/Psychiatric: positive Disoriented to time; negative Motor nml, Disoriented to person or Disoriented to place Lab Results 02/12/24 05:47 02/12/24 05:47 Other Labs: Lab Results x24hrs 02/12/24 Range/Units 05:47 WBC 9.2 (4.8-10.8) x10^3/uL RBC 3.77 L (4.70-6.10) 10^6/uL Hgb 11.2 L (14.0-18.0) g/dL Hct 35.5 L (42.0-52.0) % MCV 94.2 H (80.0-94.0) fL MCH 29.7 (27.0-31.0) pg MCHC 31.5 L (32.0-36.0) g/dL RDW 14.3 (12.0-15.0) % Plt Count 115 L (130-450) 10^3/uL MPV 9.3 (7.4-11.4) fL Neut # (Auto) 4.8 (1.5-6.6) 10^3/uL Lymph # (Auto) 3.5 (1.5-3.5) 10^3/uL [place] # (Auto) 0.7 (0.0-1.0) 10^3/uL Eos # (Auto) 0.0 (0.0-0.7) 10^3/uL Baso # (Auto) 0.0 (0.0-0.1) 10^3/uL Absolute Nucleated RBC 0.00 x10^3/uL Nucleated RBC % 0.0 /100WBC Sodium 134 L (135-145) mmol/L Potassium 3.6 (3.5-4.5) mmol/L Chloride 99 L (101-111) mmol/L Carbon Dioxide 32 (21-32) mmol/L Anion Gap 3.0 L (6-13) BUN 11 (6-20) mg/dL Creatinine 0.6 (0.6-1.3) mg/dL Estimated GFR (MDRD) 130 (>89) Glucose 97 (74-104) mg/dL Calcium 7.8 L (8.5-10.3) mg/dL Assessment/Plan Problem List (1) Acute hypoxic respiratory failure: Impression: O2 as needed, CPAP when asleep Manage pneumonia as below Plan for O2 eval tomorrow (2) Community acquired pneumonia of left lower lobe of lung: Impression: RSV positive Empirically covering for bacterial pneumonia, especially in light of aspiration event Continue Rocephin for 5-day course. Completed 3-day course of azithromycin Encourage pulmonary hygiene Continue guaifenesin Aspiration event 02/10/2024, Flagyl has been added Would benefit from speech therapy consultation. This is not available at this hospital, so he will need this at discharge 02/12/2024: Continues to require 3 L O2. May need discharged on home O2 (3) Atrial fibrillation: Impression: Has history of atrial fibrillation, managed on twice daily metoprolol. He has had sustained tachycardia while here. I have added scheduled p.o. Cardizem and increased his dose of metoprolol to 100 twice daily. I have added an echo to evaluate for CHF. Continue home dose of Eliquis. Continue telemetry 02/12/2024: Experienced multiple episodes of pauses overnight. Cardizem has been discontinued. All rate control meds were held this morning, and I will restart his metoprolol at his home dose tonight. Echocardiogram with mild aortic stenosis, EF 45 to 50%. Will continue telemetry as we are changing his rate control medications. Nursing to report any sustained tachycardia or any more episodes of pauses (4) Hypertension: Impression: Metoprolol as above (5) Dementia: Impression: Maintain good sleep hygiene, Added CPAP at night for witnessed sleep apnea Seroquel (6) BPH (benign prostatic hyperplasia): Impression: Flomax (7) Hyponatremia: Impression: UA unremarkable Received NS drip 02/11/2024: Sodium 131. De-escalating sodium checks to daily BMPs, Stop saline Resolved
--- NOTE | 2024-02-12 15:35 | XRAY Report ---
PROCEDURE: XR Knee 3V RT INDICATIONS: Knee pain TECHNIQUE: 3 views of the knee(s) were acquired. COMPARISON: 06/01/2020 FINDINGS: Bones: No acute fractures or dislocations. No suspicious bony lesions. Redemonstration of tricompar tmental osteoarthrosis of the right knee. Marginal osteophytes are noted. Soft tissues: No knee joint effusion. No suspicious soft tissue calcifications or masses. IMPRESSION: Right knee without acute fracture or dislocation. Tricompartmental osteoarthrosis of the right knee. No joint effusion. Reviewed by: Darren Anguiano MD on 02/12/2024 3:34 PM PST Approved by: Darren Anguiano MD on 02/12/2024 3:34 PM PST Station ID: [id number]
[2024-02-12] MEDS: METOPROLOL TARTRATE 50 MG TABLET PO SCH (22:07)
[2024-02-13 06:21] LABS: BASOPHILS % (AUTO) 0.3 %; EOSINOPHILS % (AUTO) 0.5 %; HCT - HEMATOCRIT 38.4 % (42.0-52.0); HGB - HEMOGLOBIN 12.1 g/dL (14.0-18.0); LYMPHOCYTES # (AUTO) 2.9 10^3/uL (1.5-3.5); MEAN CORPUSCULAR HEMOGLOBIN 29.6 pg (27.0-31.0); MEAN CORPUSCULAR HGB CONC 31.5 g/dL (32.0-36.0); MEAN CORPUSCULAR VOLUME 93.9 fL (80.0-94.0); MEAN PLATELET VOLUME 9.3 fL (7.4-11.4); MONOCYTES # (AUTO) 0.7 10^3/uL (0.0-1.0); MONOCYTES % (AUTO) 7.9 %; NEUTROPHILS # (AUTO) 4.8 10^3/uL (1.5-6.6); NEUTROPHILS % (AUTO) 55.6 %; PLT - PLATELET COUNT 152 10^3/uL (130-450); RED BLOOD COUNT 4.09 10^6/uL (4.70-6.10); RED CELL DISTRIBUTION WIDTH 14.1 % (12.0-15.0); WHITE BLOOD COUNT 8.6 x10^3/uL (4.8-10.8)
[2024-02-13 06:37] LABS: CALCIUM 8.3 mg/dL (8.5-10.3); CREATININE 0.6 mg/dL (0.6-1.3); POTASSIUM 3.6 mmol/L (3.5-4.5)
--- NOTE | 2024-02-13 12:47 | OT Plan of Care ---
OT Inpatient POC Diagnosis DIAGNOSIS Diagnosis: AHRF; RSV Chief Complaint: sob Onset of Chief Complaint: hold worker MEDICAL/SURGICAL HISTORY Medical History (Updated 02/10/24 @ 10:34 by Baldemar Dawkins DNP) BPH (benign prostatic hyperplasia) Dementia Hypertension Atrial fibrillation Assessment and Goals ASSESSMENT Assessment: Pt is a 78 y/o male adm with SOB and weakness. Workup revealed RSV +. Hospital course complicated by sustained tachycardia, PNA and O2 requirements. Pt met supine in bed on 4L NC - HR 90-120 Bmp, Spo2 94% during mobility. Pt with severe chest wheezing and gurgling with movement. Educated on use of IS with fair carryover. Pt performed supine to sit EOB MAX Ax2 - EOB sitting ~ 10 mins MIN A with retropulsion lean and cues for maintaining upright position. Able to hold self midline ~1-2 mins at a time. Attempted sit to stand MAX AX2 [employer] - Unable to sustain with retropulsion despite therapist cues. MAX Ax2 sit to supine back to bed - Unsafe for OOB to chair at this time. Currently MAX-DEP ADL's. Overall presents with decreased endurance, activity tolerance, and ADL status. Will benefit from cont OT services during acute stay. Rec d/ to SNF. -Activities of Daily Living Improve Upper Extremity Dressing to:: Standby Assist Improve Lower Extremity Dressing to:: Standby Assist Improve Grooming/Hygiene to:: Standby Assist Improve Bathing to:: Standby Assist Improve Toileting to:: Standby Assist OT Inpatient Plan PLAN Treatment Frequency: 1x/day Duration: Until discharge -Discharge Recommendations Discharge Location: [facility] Facility Transport Needs at Discharge: [facility]
[2024-02-13] MEDS: CHOLECALCIFEROL 25 MCG TABLET PO SCH (17:18)
[2024-02-13] MEDS: MULTIVITAMIN W/MINERALS TABLET PO SCH (17:18)
[2024-02-13] MEDS: metroNIDAZOLE 250 MG TABLET PO SCH (17:18)
--- NOTE | 2024-02-13 20:57 | PROVIDER PROGRESS NOTE ---
Subjective Prog Note Date Prog Note Date: 02/13/24 Subjective Pt reports feeling: No change Subjective: He states he is doing okay today. Nurses have noted that he does aspirate on occasion. Also tends to eat very quickly which is not helping his swallowing I spoke with his power of finance attorney this afternoon, his brother Randy. 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 Current Medications Current Medications Current Medications: Current Medications Generic Name Dose Route Start Last Admin Trade Name Freq PRN Reason Stop Dose Admin Acetaminophen 650 mg 02/09/24 14:51 Acetaminophen 325 Mg Tablet PO Q4HR PRN Pain 1 to 4, or Fever Allopurinol 100 mg 02/10/24 09:00 02/13/24 08:29 Allopurinol 100 Mg Tablet PO 100 mg DAILY DANUTA Administration Apixaban 5 mg 02/09/24 21:00 02/13/24 08:29 Apixaban 5 Mg Tablet PO 5 mg BID DANUTA Administration Benzonatate 100 mg 02/10/24 02:43 02/10/24 09:00 Benzonatate 100 Mg Capsule PO 100 mg TID PRN Administration Cough Ceftriaxone Sodium 1 gm 02/10/24 09:00 02/13/24 08:28 Ceftriaxone 1 Gm Vial IVP 02/14/24 08:59 1 gm DAILY DANUTA Administration Cholecalciferol 50 mcg 02/13/24 17:00 02/13/24 17:18 Cholecalciferol 25 Mcg Tablet PO 50 mcg DAILY DANUTA Administration Diltiazem HCl 10 mg 02/10/24 21:57 Diltiazem Inj 5 Mg/Ml Vial IVP Q2H PRN Tachycardia Divalproex Sodium 375 mg 02/09/24 21:00 02/13/24 08:[address] 125 Mg Tablet PO 375 mg BID DANUTA Administration Furosemide 20 mg 02/12/24 10:00 02/13/24 08:28 Furosemide 20 Mg/2 Ml Vial IVP 20 mg DAILY DANUTA Administration Guaifenesin 1,200 mg 02/10/24 11:00 02/13/24 08:29 Guaifenesin 600 Mg Tablet PO 1,200 mg BID DANUTA Administration Loratadine 10 mg 02/10/24 09:00 02/13/24 08:29 Loratadine 10 Mg Tablet PO 10 mg DAILY DANUTA Administration Metoprolol Tartrate 5 mg 02/11/24 15:42 Metoprolol 5 Mg/5 Ml Vial IVP Q6H PRN Hypertensive Emergency Metoprolol Tartrate 50 mg 02/12/24 21:00 02/13/24 08:29 Metoprolol Tartrate 50 Mg Tablet PO 50 mg BID DANUTA Administration Metronidazole 500 mg 02/13/24 17:00 02/13/24 17:18 Metronidazole 250 Mg Tablet PO 500 mg TIDWM DANUTA Administration Multivitamins/Minerals 1 tab 02/13/24 17:00 02/13/24 17:18 Multivitamin W/Minerals Tablet PO 1 tab DAILYWM DANUTA Administration Ondansetron HCl 4 mg 02/09/24 14:51 Ondansetron Odt 4 Mg Tablet TL Q6HR PRN Nausea / Vomiting Ondansetron HCl 4 mg 02/09/24 14:51 Ondansetron 4 Mg/2 Ml Vial IVP Q6HR PRN Nausea / Vomiting Quetiapine Fumarate 150 mg 02/09/24 21:00 02/13/24 08:29 Quetiapine 25 Mg Tablet PO 150 mg BID DANUTA Administration Quetiapine Fumarate 100 mg 02/10/24 12:00 02/13/24 12:43 Quetiapine 100 Mg Tablet PO 100 mg 1200 DANUTA Administration Sodium Chloride 10 ml 02/09/24 14:51 02/12/24 10:40 Sodium Chloride Flush 0.9% 10 Ml Syringe IVP 10 ml PRN PRN Administration NEEDED PER PROVIDER ORDERS Sodium Chloride 10 ml 02/09/24 17:00 02/13/24 17:19 Sodium Chloride Flush 0.9% 10 Ml Syringe IVP 10 ml 0100,0900,1700 DANUTA Administration Tamsulosin HCl 0.8 mg 02/09/24 21:00 02/12/24 22:07 Tamsulosin 0.4 Mg Capsule PO 0.8 mg QPM DANUTA Administration Trazodone HCl 50 mg 02/09/24 21:00 02/12/24 22:07 Trazodone 50 Mg Tablet PO 50 mg HS DANUTA Administration Objective Vital Signs/Intake & Output Reviewed Vital Signs: Yes Vital Signs: Vital Signs x48h Temp Pulse Resp BP Pulse Ox O2 Flow Rate 02/13/24 20:25 36.8 C 80 20 138/70 H 96 4 02/13/24 16:19 36.6 C 83 20 123/68 96 4 02/13/24 15:00 37 C 69 22 140/81 H 96 4 Intake & Output: Intake & Output 02/10/24 02/11/24 02/12/24 02/13/24 23:59 23:59 23:59 23:59 Intake Total 3408 / 3408 3597 / 3597 2290 / 2290 970 / 970 Output Total 850 / 850 Balance 2558 / 2558 3597 / 3597 2290 / 2290 970 / 970 Objective General Appearance: positive No acute distress Eyes Bilateral: positive Normal inspection ENT: positive No signs of dehydration and Other (scabbed lesion on his nose) Neck: positive No JVD Respiratory: positive Chest non-tender and Rhonchi Cardiovascular: positive Regular rate & rhythm Abdomen: positive Non-tender Skin: positive Color nml Extremities: positive Non-tender and Other (Redness in bilateral legs) Neurologic/Psychiatric: positive Disoriented to time; negative Motor nml, Disoriented to person or Disoriented to place Lab Results 02/13/24 05:42 02/13/24 05:42 Other Labs: Lab Results x24hrs 02/13/24 Range/Units 05:42 WBC 8.6 (4.8-10.8) x10^3/uL RBC 4.09 L (4.70-6.10) 10^6/uL Hgb 12.1 L (14.0-18.0) g/dL Hct 38.4 L (42.0-52.0) % MCV 93.9 (80.0-94.0) fL MCH 29.6 (27.0-31.0) pg MCHC 31.5 L (32.0-36.0) g/dL RDW 14.1 (12.0-15.0) % Plt Count 152 (130-450) 10^3/uL MPV 9.3 (7.4-11.4) fL Neut # (Auto) 4.8 (1.5-6.6) 10^3/uL Lymph # (Auto) 2.9 (1.5-3.5) 10^3/uL [place] # (Auto) 0.7 (0.0-1.0) 10^3/uL Eos # (Auto) 0.0 (0.0-0.7) 10^3/uL Baso # (Auto) 0.0 (0.0-0.1) 10^3/uL Absolute Nucleated RBC 0.00 x10^3/uL Nucleated RBC % 0.0 /100WBC Sodium 133 L (135-145) mmol/L Potassium 3.6 (3.5-4.5) mmol/L Chloride 93 L (101-111) mmol/L Carbon Dioxide 33 H (21-32) mmol/L Anion Gap 7.0 (6-13) BUN 8 (6-20) mg/dL Creatinine 0.6 (0.6-1.3) mg/dL Estimated GFR (MDRD) 130 (>89) Glucose 112 H (74-104) mg/dL Calcium 8.3 L (8.5-10.3) mg/dL Assessment/Plan Problem List (1) Acute hypoxic respiratory failure: Impression: O2 as needed, CPAP when asleep Manage pneumonia as below he remains on 2L via NC. We will need desat study to evaluate for need for outpatient oxygen. This has been ordered. (2) Community acquired pneumonia of left lower lobe of lung: Impression: RSV positive Empirically covering for bacterial pneumonia, especially in light of aspiration event Continue Rocephin for 5-day course. Completed 3-day course of azithromycin Encourage pulmonary hygiene Continue guaifenesin Aspiration event 02/10/2024, Flagyl has been added. Hospital has very little IV flagyl available. I have ordered po flagyl. Would benefit from speech therapy consultation. This is not available at this hospital, so he will need this at discharge.PT and OT have recommended prison facility. I have asked his brother Rodrick to engage with social work regarding choices for this. Patient would benefit from speech therapy at SNF for swallow evaluation. (3) Atrial fibrillation: Impression: Has history of atrial fibrillation, managed on twice daily metoprolol. He has had sustained tachycardia while here. I have added scheduled p.o. Cardizem and increased his dose of metoprolol to 100 twice daily. I have added an echo to evaluate for CHF. Continue home dose of Eliquis. Continue telemetry 02/12/2024: Experienced multiple episodes of pauses overnight. Cardizem has been discontinued. All rate control meds were held this morning, and I will restart his metoprolol at his home dose tonight. Echocardiogram with mild aortic stenosis, EF 45 to 50%. Will continue telemetry as we are changing his rate control medications. Nursing to report any sustained tachycardia or any more episodes of pauses 02/13/24:No evidence of any tachycardia. His blood pressure is well-controlled without hypotension. His telemetry monitoring shows sinus rhythm and atrial fibrillation over the last 24 hours with rates less than 100 I will continue with his home dose of metoprolol.Additionally he has been restarted on his home Eliquis. (4) Hypertension: Impression: Metoprolol as above (5) Dementia: Impression: Maintain good sleep hygiene, Added CPAP at night for witnessed sleep apnea [id number] mg twice daily with 100 mg at noon. This patient is oriented x 3. He does not however show insight into his situation. When I discussed his situation with his brother Rodrick Mensah makes it very clear to me that Sloan does not have dementia. He does have developmental delay. (6) BPH (benign prostatic hyperplasia): Impression: Flomax (7) Hyponatremia: Impression: UA unremarkable Received NS drip 02/11/2024: Sodium 131. De-escalating sodium checks to daily BMPs, Stop saline Resolved Laboratory Tests 02/11/24 02/12/24 02/13/24 07:24 05:47 05:42 Sodium 131 L 134 L 133 L I have spent 36 minutes in the care of this patient today. This includes time [id number], review and ordering of diagnostic imaging and laboratory studie, s and consultation with other providers.. Monitoring the patient's signs symptoms, evaluation of medication effectiveness and patient's response to treatment.
[2024-02-14] MEDS: diltiaZEM INJ 5 MG/ML VIAL IVP PRN (03:34)
[2024-02-14] MEDS: METOPROLOL 5 MG/5 ML VIAL IVP PRN (04:29)
[2024-02-14] MEDS: diltiaZEM INJ 5 MG/ML VIAL IVP ONE (07:01)
[2024-02-14 07:16] LABS: BASOPHILS % (AUTO) 0.4 %; EOSINOPHILS # (AUTO) 0.1 10^3/uL (0.0-0.7); EOSINOPHILS % (AUTO) 0.6 %; HGB - HEMOGLOBIN 12.9 g/dL (14.0-18.0); LYMPHOCYTES # (AUTO) 3.1 10^3/uL (1.5-3.5); LYMPHOCYTES % (AUTO) 32.7 %; MEAN CORPUSCULAR HEMOGLOBIN 29.3 pg (27.0-31.0); MEAN CORPUSCULAR HGB CONC 31.5 g/dL (32.0-36.0); MEAN PLATELET VOLUME 9.4 fL (7.4-11.4); MONOCYTES # (AUTO) 0.9 10^3/uL (0.0-1.0); MONOCYTES % (AUTO) 9.7 %; NEUTROPHILS # (AUTO) 5.2 10^3/uL (1.5-6.6); NEUTROPHILS % (AUTO) 54.4 %; PLT - PLATELET COUNT 180 10^3/uL (130-450); RED BLOOD COUNT 4.41 10^6/uL (4.70-6.10); RED CELL DISTRIBUTION WIDTH 13.9 % (12.0-15.0); WHITE BLOOD COUNT 9.5 x10^3/uL (4.8-10.8)
[2024-02-14 07:20] LABS: CALCIUM 8.8 mg/dL (8.5-10.3); CREATININE 0.7 mg/dL (0.6-1.3); POTASSIUM 3.6 mmol/L (3.5-4.5)
[2024-02-14 08:35] VITALS: TEMP 98.1; O2SAT 94
[2024-02-14 09:24] VITALS: BP 127/75
--- NOTE | 2024-02-14 11:30 | Discharge Summary ---
"Discharge Summary Admit Date: 02/09/24 Discharge Date: 02/14/24 Discharging Provider: Mabel Borwning PA-C Primary Care Provider: As assigned at [facility], previously Melody Dubois Code Status: Do Not Attempt Resuscitation DIAGNOSES Discharge Diagnoses with Status of Each Condition: Acute hypoxic respiratory failure, continues to be oxygen dependent. Community-acquired pneumonia, possible aspiration, treated Atrial fibrillation, chronic and controlled. Hypertension, chronic and controlled. Longstanding developmental delay. BPH chronic and controlled Hyponatremia, resolved. HPI History of Present Illness: 78-year-old male H significant for dementia, depression, hypertension, BPH, atrial fibrillation who is a facility resident was sent to the ER for difficulty breathing. In the ER, he was noted to have a fever of 30 8.7C, chest x-ray was performed which showed a left lower lobe pneumonia. He was hypoxic to the 80s on room air, was placed on 2 L O2. Hospitalist was contacted for admission for Acute hypoxic respiratory failure CONSULTS | PROCEDURES Procedures: Chest x-ray: Mid left lung base opacity and effusion, possibly infectious. Repeat chest x-ray 1 day following shows patchy bibasilar atelectasis Left lower extremity venous duplex negative Knee x-ray: Right knee without acute fracture or dislocation. Tricompartmental osteoarthritis of the right knee. No joint effusion. HOSPITAL COURSE Hospital Course: (1) Acute hypoxic respiratory failure: Impression: O2 as needed, CPAP when asleep Manage pneumonia as below he remains on 2L via NC. . (2) Community acquired pneumonia of left lower lobe of lung: Impression: RSV positive Empirically covering for bacterial pneumonia, especially in light of aspiration event Completed Rocephin for 5-day course. Completed 3-day course of azithromycin. Added Flagyl for a 5-day course as he did have a witnessed aspiration event while here in the hospital. Encourage pulmonary hygiene Continue guaifenesin Would benefit from speech therapy consultation. This is not available at this hospital, so he will need this at discharge.PT and OT have recommended senior care facility. (3) Atrial fibrillation: Impression: 02/12/2024: Experienced multiple episodes of pauses overnight. Cardizem has been discontinued. ( this was started on admit then dc'ed) All rate control meds were held this morning, and I will restart his metoprolol at his home dose tonight. . Will continue telemetry as we are changing his rate control medications. Nursing to report any sustained tachycardia or any more episodes of pauses 02/13/24:No evidence of any tachycardia. His blood pressure is well-controlled without hypotension. His telemetry monitoring shows sinus rhythm and atrial fibrillation over the last 24 hours with rates less than 100 I will continue with his home dose of metoprolol.Additionally he has been restarted on his home Eliquis. Echocardiogram dated 02/11/2024 shows atrial fibrillation with RVR. Left ventricular systolic function mildly impaired with ejection fraction of 45 to 50%. There is mild aortic stenosis although the image quality is very poor. (4) Hypertension: Impression: Metoprolol as above (5) Developmental delay Impression: Discussion with patient's brother. This patient does not have dementia. He remains alert and oriented x 3. He has lifelong developmental delay and is always lived in a supervised situation Maintain good sleep hygiene, Added CPAP at night for witnessed sleep apnea [id number] mg twice daily with 100 mg at noon. (6) BPH (benign prostatic hyperplasia): Impression: Flomax (7) Hyponatremia: Impression: UA unremarkable Received NS drip 02/11/2024: Sodium 131. De-escalating sodium checks to daily BMPs, Stop saline Resolved Laboratory Tests 02/11/24 02/12/24 02/13/24 07:24 05:47 05:42 Sodium 131 L 134 L 133 L ALLERGIES Allergies Allergy/AdvReac Type Severity Reaction Status Date / Time No Known Drug Allergies Allergy Verified 05/21/21 07:30 MEDICATIONS Ambulatory Orders Medication Instructions Recorded Confirmed acetaminophen 325 mg tablet 650 mg (2 x 325 mg) PO Q4HR PRN 02/14/24 Pain 1 to 4, or Fever #60 tabs allopurinol 100 mg tablet 100 mg PO DAILY #30 tabs 02/14/24 apixaban 5 mg tablet (Eliquis) 5 mg PO BID #60 tabs 02/14/24 benzonatate 100 mg capsule 100 mg PO TID PRN Cough #30 caps 02/14/24 cholecalciferol (vitamin D3) 25 50 mcg (2 x 25 mcg (1,000 unit)) 02/14/24 mcg (1,000 unit) tablet PO DAILY #60 tabs divalproex 125 mg tablet,delayed 375 mg (3 x 125 mg) PO BID #180 02/14/24 release tabs furosemide 40 mg tablet 40 mg PO DAILY #30 tabs 02/14/24 guaifenesin 600 mg tablet, 1,200 mg (2 x 600 mg) PO BID #20 02/14/24 extended release 12 hr (Mucinex) tabs loratadine 10 mg tablet 10 mg PO DAILY #30 tabs 02/14/24 metoprolol tartrate 50 mg tablet 50 mg PO BID #60 tabs 02/14/24 metronidazole 250 mg tablet 500 mg (2 x 250 mg) PO TIDWM #12 02/14/24 tabs [id number] 1 tab PO DAILYWM #30 tabs 02/14/24 fumarate 19 mg-folic acid 400 mcg tablet (Therapeutic-M) quetiapine 100 mg tablet 100 mg PO 1200 #30 tabs 02/14/24 quetiapine 25 mg tablet 150 mg (6 x 25 mg) PO BID #360 tabs 02/14/24 tamsulosin 0.4 mg capsule 0.8 mg (2 x 0.4 mg) PO QPM #60 caps 02/14/24 trazodone 50 mg tablet 50 mg PO HS #30 tabs 02/14/24 PHYSICAL EXAM AT DISCHARGE Physical Exam Other/Comments: General Appearance: positive No acute distress Eyes Bilateral: positive Normal inspection ENT: positive No signs of dehydration and Other (scabbed lesion on his nose) Neck: positive No JVD Respiratory: positive Chest non-tender and Rhonchi Cardiovascular: positive Regular rate & rhythm Abdomen: positive Non-tender Skin: positive Color nml Extremities: positive Non-tender and Other (Redness in bilateral legs) worse on the left, with venous stasis changes and skin irriation, minimal edema Neurologic/Psychiatric: positive Disoriented to time; negative Motor nml, Disoriented to person or Disoriented to place LABS 02/14/24 06:13 02/14/24 06:13 FOLLOW UP Follow Up: PCP at [facility] TIME SPENT Time Spent in Discharge (Minutes): 45 Discharge Plan Discharge Patient Disposition: [facility] DC/Xfer Condition: Stable Prescriptions: New acetaminophen 325 mg Tablet 650 mg PO Q4HR PRN (Reason: Pain 1 to 4, or Fever) Qty: 60 0RF benzonatate 100 mg Capsule 100 mg PO TID PRN (Reason: Cough) Qty: 30 0RF cholecalciferol (vitamin D3) 25 mcg (1,000 unit) Tablet 50 mcg PO DAILY Qty: 60 0RF furosemide 40 mg Tablet 40 mg PO DAILY Qty: 30 0RF guaifenesin [Mucinex] 600 mg Tablet Extended Release 12hr 1,200 mg PO BID Qty: 20 0RF metronidazole 250 mg Tablet 500 mg PO TIDWM Qty: 12 0RF Therapeutic-M 19 mg iron- 400 mcg Tablet 1 tab PO DAILYWM Qty: 30 0RF allopurinol 100 mg Tablet 100 mg PO DAILY Qty: 30 0RF divalproex 125 mg Tablet,Delayed Release (Dr/Ec) 375 mg PO BID Qty: 180 0RF loratadine 10 mg Tablet 10 mg PO DAILY Qty: 30 0RF Eliquis 5 mg Tablet 5 mg PO BID Qty: 60 0RF quetiapine 25 mg Tablet 150 mg PO BID Qty: 360 0RF trazodone 50 mg Tablet 50 mg PO HS Qty: 30 0RF quetiapine 100 mg Tablet 100 mg PO 1200 Qty: 30 0RF tamsulosin 0.4 mg Capsule 0.8 mg PO QPM Qty: 60 0RF metoprolol tartrate 50 mg Tablet 50 mg PO BID Qty: 60 0RF Discontinued trazodone 50 MG tablet 50 mg PO HS allopurinol 100 MG tablet 100 mg PO DAILY quetiapine 100 MG tablet 100 mg PO DAILY Rx Instructions: at noon tamsulosin 0.4 MG capsule 0.8 mg PO QPM divalproex 125 MG tablet,delayed release (DR/EC) 375 mg PO BID lorazepam 1 MG tablet 1 mg PO Q6HR PRN (Reason: Anxiety) quetiapine [Seroquel] 50 MG tablet 150 mg PO BID Eliquis 5 MG tablet 5 mg PO BID acetaminophen 325 mg tablet 650 mg PO Q4H loratadine [Claritin] 10 mg tablet 10 mg PO DAILY metoprolol tartrate 50 mg tablet 50 mg PO BID Activity Restrictions: Activity as Tolerated Diet: Cardiac Health Concerns: The fact that I typically use 78-year-old male with past medical history significant for dementia depression hypertension BPH atrial fibrillation who presented from his assisted living facility to the emergency department for difficulty breathing. He was febrile to 30.8 C on admission and chest x-ray showed a left lower lobe pneumonia. He was hypoxic to the 80s on room air and placed on oxygen. He required supplemental oxygen 2 to 3 L via nasal cannula to maintain oxygen saturations. He received 3 days of azithromycin and 5 days of Rocephin during this hospitalization. Additionally, he was noted to occasionally aspirate as he eats his food very quickly and therefore he will also be treated with Flagyl for total of 5 days. He has a history of atrial fibrillation he is on metoprolol and Eliquis at his assisted living facility and these were continued. Patient does not carry a diagnosis of dementia. I have discussed this with his brother. He has a history of developmental delay and has been in some sort of supervised living environment for his entire life. He is on Seroquel 150 mg morning and night and 100 mg at midday. These are home medications. Care Plan Goals: During the course of his treatment for pneumonia he has failed to wean off oxygen. He will need oxygen support 2 to 3 L via nasal cannula. He was seen by physical therapy and Occupational Therapy. They are recommending senior care rehab. Patient was previously independently ambulatory without assistive devices at his assisted living facility. Assessment: Community-acquired pneumonia, possible aspiration. Treated for both Print Language: Surinamese Follow-up Care: MELODY DUBOIS MD [Primary Care Provider] -"
--- NOTE | 2024-02-14 12:55 | PT Plan of Care ---
Medical/Surgical Past History Past History Medical History (Updated 02/14/24 @ 11:35 by SORAYA Mccauley) BPH (benign prostatic hyperplasia) Dementia Hypertension
[2024-02-15] MEDS ORDERED: FUROSEMIDE 40 MG TABLET PO SCH (09:00)
== END 2024-02-14 13:18 | DRG 189 ==
LOC: MS2 12:15 → ED 12:15 → MS2 14:54
PROVIDERS: ADMIT Nurse Practitioner Acute Care; ATTEND Nurse Practitioner Acute Care
DX: Z79.01 Long term (current) use of anticoagulants; R00.0 Tachycardia, unspecified; I10 Essential (primary) hypertension; J18.9 Pneumonia, unspecified organism; M25.561 Pain in right knee; R41.82 Altered mental status, unspecified; D59.5 Paroxysmal nocturnal hemoglobinuria [Marchiafava-Micheli]; I44.4 Left anterior fascicular block; I48.91 Unspecified atrial fibrillation; Z66 Do not resuscitate; J96.01 Acute respiratory failure with hypoxia; R62.50 Unspecified lack of expected normal physiological development in childhood; E87.1 Hypo-osmolality and hyponatremia; G47.30 Sleep apnea, unspecified; N40.0 Benign prostatic hyperplasia without lower urinary tract symptoms; I35.0 Nonrheumatic aortic (valve) stenosis; F32.A Depression, unspecified; F03.90 Unspecified dementia, unspecified severity, without behavioral disturbance, psychotic disturbance, mood disturbance, and anxiety; G89.29 Other chronic pain